=== PATIENT | male | born 1950 | race African-American/Black ===

== ENCOUNTER → 2017-09-03 | Outpatient (CLI) | payer MEDICARE ==
[2017-09-03 09:01] LABS: ALT 49 U/L (21-72); AST 57 U/L (17-59); Albumin 4.2 g/dL (3.5-5.0); Alkaline Phosphatase 54 U/L (38-126); Anion Gap 9 mmol/L; Blood Urea Nitrogen 19 mg/dL (9-20); Calcium 9.2 mg/dL (8.4-10.2); Carbon Dioxide 26 mmol/L (22-30); Chloride 104 mmol/L (98-107); Cholesterol 148 mg/dL (<200); Glucose 100 mg/dL (74-99); HDL Cholesterol 37 mg/dL (40-60); LDL Cholesterol,Calculated 93 mg/dL (0-99); Potassium 4.3 mmol/L (3.5-5.1); Sodium 139 mmol/L (137-145); Total Bilirubin 0.6 mg/dL (0.2-1.3); Total Protein 6.8 g/dL (6.3-8.2); Triglycerides 89 mg/dL (<150)
[2017-09-03 09:11] LABS: Basophils % (A) 1 %; Eosinophils # (A) 0.2 k/uL (0-0.7); Eosinophils % (A) 6 %; HCT 45.3 % (39.0-53.0); HGB 15.2 gm/dL (13.0-17.5); Lymphocytes % (A) 33 %; MCH 31.8 pg (25.0-35.0); MCHC 33.5 g/dL (31.0-37.0); MCV 95.1 fL (80.0-100.0); Mean Platelet Volume 7.4; Monocytes # (A) 0.3 k/uL (0-1.0); Monocytes % (A) 8 %; Neutrophils # (A) 1.5 k/uL (1.3-7.7); Neutrophils % (A) 48 %; Platelet Count 178 k/uL (150-450); RBC 4.76 m/uL (4.30-5.90); RDW 13.2 % (11.5-15.5); WBC 3.2 k/uL (3.8-10.6)
[2017-09-03 09:36] LABS: Prostate Specific Antigen <0.10 ng/mL (0.00-4.00)
== END | disposition home or self-care (01) ==
LOC: LABWHC1 08:00
PROVIDERS: ATTEND Family Medicine
DX: E78.5 Hyperlipidemia, unspecified (principal); Z12.5 Encounter for screening for malignant neoplasm of prostate
CPT/HCPCS: 36415; 80053; 80061; 82306; 84153; 85025

== ENCOUNTER → 2017-10-01 | Outpatient (CLI) | payer MEDICARE ==
[2017-10-01 14:26] LABS: Basophils % (A) 1 %; Eosinophils # (A) 0.1 k/uL (0-0.7); Eosinophils % (A) 3 %; HCT 47.8 % (39.0-53.0); HGB 15.8 gm/dL (13.0-17.5); Lymphocytes % (A) 26 %; MCH 31.5 pg (25.0-35.0); MCV 95.2 fL (80.0-100.0); Mean Platelet Volume 7.3; Monocytes # (A) 0.3 k/uL (0-1.0); Monocytes % (A) 8 %; Neutrophils # (A) 2.2 k/uL (1.3-7.7); Neutrophils % (A) 58 %; Platelet Count 181 k/uL (150-450); RBC 5.02 m/uL (4.30-5.90); RDW 13.4 % (11.5-15.5); WBC 3.8 k/uL (3.8-10.6)
[2017-10-01 14:38] LABS: Albumin 4.4 g/dL (3.5-5.0); Calcium 9.6 mg/dL (8.4-10.2); Potassium 4.6 mmol/L (3.5-5.1); Total Bilirubin 0.6 mg/dL (0.2-1.3); Total Protein 7.1 g/dL (6.3-8.2)
[2017-10-01 20:45] LABS: Hemoglobin A1C 5.1 % (4.0-6.0)
== END | disposition home or self-care (01) ==
LOC: LABWHC1 13:50
PROVIDERS: ATTEND Family Medicine
DX: R73.01 Impaired fasting glucose (principal)
CPT/HCPCS: 36415; 80053; 83036; 85025

== ENCOUNTER → 2017-11-29 | Outpatient (CLI) | payer MEDICARE ==
[2017-11-29 09:02] LABS: Albumin 4.3 g/dL (3.5-5.0); Calcium 9.4 mg/dL (8.4-10.2); Potassium 4.7 mmol/L (3.5-5.1); Total Bilirubin 0.6 mg/dL (0.2-1.3); Total Protein 7.3 g/dL (6.3-8.2)
== END | disposition home or self-care (01) ==
LOC: LABWHC1 08:03
PROVIDERS: ATTEND Family Medicine
DX: R73.01 Impaired fasting glucose (principal)
CPT/HCPCS: 36415; 80053

== ENCOUNTER → 2018-07-14 | Outpatient (CLI) | payer MEDICARE ==
[2018-07-14 13:29] LABS: Prothrombin Time 90.9 sec (9.0-12.0)
[2018-07-14 13:36] LABS: INR 9.2 (<1.2)
== END | disposition home or self-care (01) ==
LOC: LABWHC1 11:23
PROVIDERS: ATTEND Nurse Practitioner Adult Health
DX: I26.99 Other pulmonary embolism without acute cor pulmonale (principal)
CPT/HCPCS: 36415; 85610

== ENCOUNTER → 2019-06-05 | Outpatient (CLI) | payer MEDICARE ==
[2019-06-05 09:25] LABS: Basophils % (A) 1 %; Eosinophils # (A) 0.2 k/uL (0-0.7); Eosinophils % (A) 6 %; HCT 51.9 % (39.0-53.0); HGB 17.1 gm/dL (13.0-17.5); Lymphocytes # (A) 0.9 k/uL (1.0-4.8); Lymphocytes % (A) 30 %; MCH 31.3 pg (25.0-35.0); MCHC 32.9 g/dL (31.0-37.0); MCV 95.1 fL (80.0-100.0); Mean Platelet Volume 8.1; Monocytes # (A) 0.2 k/uL (0-1.0); Monocytes % (A) 8 %; Neutrophils # (A) 1.5 k/uL (1.3-7.7); Neutrophils % (A) 52 %; Platelet Count 169 k/uL (150-450); RBC 5.46 m/uL (4.30-5.90); RDW 12.9 % (11.5-15.5); WBC 2.9 k/uL (3.8-10.6)
[2019-06-05 15:38] LABS: African American GFR (CKD) 65.4 (60.0-200.0); Albumin 4.5 g/dL (3.80-4.90); Albumin/Globulin Ratio 1.96 (1.60-3.17); BUN/Creat Ratio 11.54 Ratio (12.00-20.00); Calcium 9.2 mg/dL (8.7-10.3); Globulin 2.3 g/dL (1.6-3.3); Non-African American GFR(CKD) 56.5 (60.0-200.0); Potassium 4.5 mmol/L (3.5-5.5); Total Bilirubin 0.5 mg/dL (0.2-1.2); Total Protein 6.8 g/dL (6.2-8.2)
== END | disposition home or self-care (01) ==
LOC: LABWHC1 08:39
PROVIDERS: ATTEND Family Medicine
DX: I10 Essential (primary) hypertension (principal); Z85.46 Personal history of malignant neoplasm of prostate; E55.9 Vitamin D deficiency, unspecified
CPT/HCPCS: 36415; 80053; 82306; 84153; 85025

== ENCOUNTER → 2019-06-23 | Outpatient (CLI) | payer MEDICARE ==
[2019-06-23 11:27] LABS: Basophils # (A) 0.1 k/uL (0-0.2); Basophils % (A) 2 %; Eosinophils # (A) 0.2 k/uL (0-0.7); Eosinophils % (A) 6 %; HCT 54.3 % (39.0-53.0); Lymphocytes # (A) 1.2 k/uL (1.0-4.8); Lymphocytes % (A) 34 %; MCHC 33.1 g/dL (31.0-37.0); MCV 96.7 fL (80.0-100.0); Mean Platelet Volume 7.6; Monocytes # (A) 0.3 k/uL (0-1.0); Monocytes % (A) 8 %; Neutrophils # (A) 1.7 k/uL (1.3-7.7); Neutrophils % (A) 47 %; Platelet Count 182 k/uL (150-450); RBC 5.62 m/uL (4.30-5.90); RDW 12.8 % (11.5-15.5); WBC 3.6 k/uL (3.8-10.6)
[2019-06-23 15:34] LABS: African American GFR (CKD) 50.9 (60.0-200.0); Albumin 4.6 g/dL (3.80-4.90); Albumin/Globulin Ratio 1.84 (1.60-3.17); Anion Gap 5.1 mmol/L (4.00-12.00); BUN/Creat Ratio 11.88 Ratio (12.00-20.00); Calcium 9.6 mg/dL (8.7-10.3); Carbon Dioxide 26.9 mmol/L (21.6-31.8); Globulin 2.5 g/dL (1.6-3.3); Non-African American GFR(CKD) 43.9 (60.0-200.0); Potassium 4.4 mmol/L (3.5-5.5); Total Bilirubin 0.5 mg/dL (0.3-1.2); Total Protein 7.1 g/dL (6.2-8.2)
== END | disposition home or self-care (01) ==
LOC: LABWHC1 11:01
PROVIDERS: ATTEND Family Medicine
DX: I10 Essential (primary) hypertension (principal)
CPT/HCPCS: 36415; 80053; 85025

== ENCOUNTER → 2019-07-31 | Outpatient (CLI) | payer MEDICARE ==
[2019-07-31 13:19] LABS: Basophils # (A) 0.1 k/uL (0-0.2); Basophils % (A) 2 %; Eosinophils # (A) 0.2 k/uL (0-0.7); Eosinophils % (A) 4 %; HCT 51.2 % (39.0-53.0); HGB 17.1 gm/dL (13.0-17.5); Lymphocytes # (A) 1.1 k/uL (1.0-4.8); Lymphocytes % (A) 29 %; MCH 32.5 pg (25.0-35.0); MCHC 33.4 g/dL (31.0-37.0); MCV 97.4 fL (80.0-100.0); Mean Platelet Volume 8.3; Monocytes # (A) 0.4 k/uL (0-1.0); Monocytes % (A) 10 %; Neutrophils % (A) 52 %; Platelet Count 187 k/uL (150-450); RBC 5.26 m/uL (4.30-5.90); RDW 13.2 % (11.5-15.5); WBC 3.8 k/uL (3.8-10.6)
[2019-07-31 18:33] LABS: Urine Creatinine 184.8 mg/dL
[2019-07-31 20:34] LABS: Albumin 4.4 g/dL (3.80-4.90); Anion Gap 9.8 mmol/L (4.00-12.00); Calcium 9.3 mg/dL (8.7-10.3); Carbon Dioxide 23.2 mmol/L (21.6-31.8); Globulin 2.2 g/dL (1.6-3.3); Non-African American GFR(CKD) 47.5 (60.0-200.0); Potassium 4.5 mmol/L (3.5-5.5); Total Bilirubin 0.5 mg/dL (0.2-1.2); Total Protein 6.6 g/dL (6.2-8.2)
== END | disposition home or self-care (01) ==
LOC: LABWHC1 10:56
PROVIDERS: ATTEND Family Medicine
DX: I10 Essential (primary) hypertension (principal)
CPT/HCPCS: 36415; 80053; 82043; 82570; 85025

== ENCOUNTER → 2021-02-15 | Outpatient (CLI) | payer MEDICARE ==
[2021-02-15 17:54] LABS: Basophils # (A) 0.07 X 10*3/uL (0.00-0.10); Basophils % (A) 2.1 %; Eosinophils # (A) 0.16 X 10*3/uL (0.04-0.35); Eosinophils % (A) 4.7 %; HCT 48.8 % (39.6-50.0); HGB 16.2 g/dL (13.0-17.0); Lymphocytes # (A) 1.05 X 10*3/uL (0.90-5.00); Lymphocytes % (A) 31.2 %; MCHC 33.2 g/dL (32.0-37.0); MCV 93.5 fL (80.0-97.0); Mean Platelet Volume 10.7 fL (9.5-12.2); Monocytes # (A) 0.41 X 10*3/uL (0.20-1.00); Monocytes % (A) 12.2 %; Neutrophils # (A) 1.67 X 10*3/uL (1.80-7.70); Neutrophils % (A) 49.5 %; Platelet Count 177 X 10*3/uL (140-440); RBC 5.22 X 10*6/uL (4.40-5.60); RDW 12.3 % (11.5-14.5); WBC 3.37 X 10*3/uL (4.50-10.00)
[2021-02-15 18:34] LABS: ALT 24 U/L (10-49); AST 24 U/L (14-35); African American GFR (CKD) 72.3 (60.0-200.0); Albumin 4.4 g/dL (3.8-4.9); Albumin/Globulin Ratio 1.91 (1.60-3.17); Alkaline Phosphatase 75 U/L (41-126); BUN/Creat Ratio 12.18 Ratio (12.00-20.00); Blood Urea Nitrogen 14.5 mg/dL (9.0-27.0); Calcium 9.3 mg/dL (8.7-10.3); Carbon Dioxide 20.7 mmol/L (20.0-27.5); Chloride 100 mmol/L (96-109); Chol/HDL Ratio 4.95 Ratio; Globulin 2.3 g/dL (1.6-3.3); Glucose 268 mg/dL (70-110); LDL Cholesterol,Calculated 91.3 mg/dL (0.0-131.0); Non-African American GFR(CKD) 62.4 (60.0-200.0); Potassium 4.4 mmol/L (3.5-5.5); Sodium 134 mmol/L (135-145); Total Protein 6.7 g/dL (6.2-8.2)
[2021-02-15 22:44] LABS: PSA Annual Screen <0.014 ng/mL (0.000-4.000)
== END | disposition home or self-care (01) ==
LOC: LABWHC1 10:15
PROVIDERS: ATTEND Family Medicine
DX: Z12.5 Encounter for screening for malignant neoplasm of prostate (principal); E78.5 Hyperlipidemia, unspecified; I10 Essential (primary) hypertension; E55.9 Vitamin D deficiency, unspecified
CPT/HCPCS: 80061; 80053; 85025; 82306; 36415; G0103

== ENCOUNTER → 2022-05-26 | Outpatient (CLI) | payer MEDICARE ==
[2022-05-26 18:13] LABS: Basophils # (A) 0.07 X 10*3/uL (0.00-0.10); Basophils % (A) 0.9 %; Eosinophils # (A) 0.11 X 10*3/uL (0.04-0.35); Eosinophils % (A) 1.4 %; HCT 38.5 % (39.6-50.0); HGB 11.5 g/dL (13.0-17.0); Immature Grans, Automated 0.1 %; Lymphocytes # (A) 0.88 X 10*3/uL (0.90-5.00); Lymphocytes % (A) 10.8 %; MCH 28.2 pg (27.0-32.0); MCHC 29.9 g/dL (32.0-37.0); MCV 94.4 fL (80.0-97.0); Mean Platelet Volume 9.4 fL (9.5-12.2); Monocytes # (A) 0.79 X 10*3/uL (0.20-1.00); Monocytes % (A) 9.7 %; NRBC Per 100 WBC 0 /100 WBCS (0.0-0.0); Neutrophils # (A) 6.28 X 10*3/uL (1.80-7.70); Neutrophils % (A) 77.1 %; Platelet Count 297 X 10*3/uL (140-440); RBC 4.08 X 10*6/uL (4.40-5.60); RDW 13.6 % (11.5-14.5); WBC 8.14 X 10*3/uL (4.50-10.00)
[2022-05-26 18:29] LABS: African American GFR (CKD) 78.4 (60.0-200.0); Albumin 3.6 g/dL (3.8-4.9); Albumin/Globulin Ratio 0.82 (1.60-3.17); Anion Gap 10.2 mmol/L (10.00-18.00); BUN/Creat Ratio 15.73 Ratio (12.00-20.00); Blood Urea Nitrogen 17.3 mg/dL (9.0-27.0); Calcium 9.2 mg/dL (8.7-10.3); Carbon Dioxide 24.8 mmol/L (20.0-27.5); Globulin 4.4 g/dL (1.6-3.3); Non-African American GFR(CKD) 67.7 (60.0-200.0); Potassium 4.3 mmol/L (3.5-5.5); Total Bilirubin 0.5 mg/dL (0.30-1.20)
== END | disposition home or self-care (01) ==
LOC: LABWHC1 10:44
PROVIDERS: ATTEND Family Medicine
DX: I10 Essential (primary) hypertension (principal)
CPT/HCPCS: 36415; 80053; 85025

== ENCOUNTER 2022-06-10 11:04 | Emergency (ER) | payer MEDICARE ==
[2022-06-10 11:56] VITALS: TEMP 98
[2022-06-10 12:24] LABS: Basophils % (A) 0 %; Eosinophils # (A) 0.1 k/uL (0-0.7); Eosinophils % (A) 2 %; HCT 37.8 % (39.0-53.0); HGB 11.6 gm/dL (13.0-17.5); Hypochromasia Slight; Lymphocytes # (A) 0.6 k/uL (1.0-4.8); Lymphocytes % (A) 9 %; MCH 28.5 pg (25.0-35.0); MCHC 30.7 g/dL (31.0-37.0); MCV 93.1 fL (80.0-100.0); Monocytes # (A) 0.2 k/uL (0-1.0); Monocytes % (A) 3 %; Neutrophils # (A) 5.8 k/uL (1.3-7.7); Neutrophils % (A) 84 %; Platelet Count 320 k/uL (150-450); RBC 4.06 m/uL (4.30-5.90); RDW 14.8 % (11.5-15.5); WBC 6.9 k/uL (3.8-10.6)
[2022-06-10 12:37] LABS: INR 3.3 (<1.2); Partial Thromboplastin Time 40.4 sec (22.0-30.0)
[2022-06-10 12:42] LABS: Calcium 8.6 mg/dL (8.4-10.2); Magnesium 2.3 mg/dL (1.6-2.3); Potassium 4.8 mmol/L (3.5-5.1); Total Bilirubin 0.6 mg/dL (0.2-1.3); Total Protein 7.5 g/dL (6.3-8.2)
--- NOTE | 2022-06-10 13:00 | ED ---
General Adult HPI - General Chief complaint: Shortness of Breath Stated complaint: abd pain Time Seen by Provider: 06/10/22 12:05 Source: patient, RN notes reviewed, old records reviewed Mode of arrival: ambulatory Limitations: no limitations - History of Present Illness Initial comments: This is a 72-year-old male who presents emergency Department complaining of nausea. Patient states she gets about once every 2 weeks. Patient states when he is nauseous she is not eating and he believes he is losing a little weight because of that. Patient states he has no nausea currently but his primary medical care doctor told him to come in and be evaluated. Patient states he also is noted when he is nauseated he also is somewhat short of breath but he does continue to smoke. Patient states currently he feels a little short of breath right now per patient denies any chest pain or palpitations. Patient denies any abdominal pain patient states when he is nauseated he gets a little cramping he has had dry heaves but he never vomited. Patient denies any diarrhea. Patient states his bowel movements are normal. Patient denies any fever chills or cough. - Related Data Home Medications Medication Instructions Recorded Confirmed Ascorbic Acid [Vitamin C] 1,000 mg PO DAILY 06/10/22 06/10/22 Garlic 1,000 mg PO DAILY 06/10/22 06/10/22 Green Tea [place] Extract [Green Tea 150 mg PO DAILY 06/10/22 06/10/22 Extract] Vitamin E (Dl,Tocopheryl Acet) 450 mg PO DAILY 06/10/22 06/10/22 [Vitamin E (1000 Iu = 450 MG)] Warfarin Sodium 10 mg PO DAILY 06/10/22 06/10/22 amLODIPine [Norvasc] 10 mg PO DAILY 06/10/22 06/10/22 lisinopriL [Zestril] 2.5 mg PO DAILY 06/10/22 06/10/22 metFORMIN HCL [Glucophage] 500 mg PO BID 06/10/22 06/10/22 Allergies Allergy/AdvReac Type Severity Reaction Status Date / Time Penicillins Allergy Unknown Verified 06/10/22 14:52 Childhood Review of Systems ROS Statement: Those systems with pertinent positive or pertinent negative responses have been documented in the HPI. ROS Other: All systems not noted in ROS Statement are negative. Past Medical History Past Medical History: Deep Vein Thrombosis (DVT), Prostate Disorder History of Any Multi-Drug Resistant Organisms: None Reported Past Surgical History: Prostate Surgery Past Psychological History: No Psychological Hx Reported Smoking Status: Current every day smoker Past Alcohol Use History: Occasional Past Drug Use History: None Reported General Exam - General Exam Comments Initial Comments: GENERAL: Patient is well-developed and well-nourished. Patient is nontoxic and well- hydrated and is in no acute distress. ENT: Neck is soft and supple. No significant lymphadenopathy is noted. Oropharynx is clear. Moist mucous membranes. Neck has full range of motion without eliciting any pain. EYES: The sclera were anicteric and conjunctiva were pink and moist. Extraocular movements were intact and pupils were equal round and reactive to light. Eyelids were unremarkable. PULMONARY: Unlabored respirations. Good breath sounds bilaterally. No audible rales rhonchi or wheezing was noted. CARDIOVASCULAR: There is a regular rate and rhythm without any murmurs gallops or rubs. ABDOMEN: Soft and nontender with normal bowel sounds. SKIN: Skin is clear with no lesions or rashes and otherwise unremarkable. NEUROLOGIC: Patient is alert and oriented x3. Cranial nerves II through XII are grossly intact. Motor and sensory are also intact. Normal speech, volume and content. Symmetrical smile. MUSCULOSKELETAL: Normal extremities with adequate strength and full range of motion. No lower extremity swelling or edema. No calf tenderness. LYMPHATICS: No significant lymphadenopathy is noted PSYCHIATRIC: Normal psychiatric evaluation. 68 Limitations: no limitations Course Vital Signs 06/10/22 06/10/22 11:51 15:00 Temperature 98.0 F Pulse Rate 100 78 Respiratory 20 18 Rate Blood Pressure 101/68 100/68 O2 Sat by Pulse 98 98 Oximetry Medical Decision Making - Medical Decision Making EKG as interpreted by myself. EKG shows a sinus rhythm at 95 bpm TN interval 129 QRSs 102 QT interval 350 QTC is 411. Patient's EKG has some inverted T waves in the inferior leads. I have no old EKG to compare to Was pt. sent in by a medical professional or institution (, SAMY, HAIR BOILER OPERATOR, urgent care, hospital, or long-term...) When possible be specific @ -Dr. Pike the sent the patient in to be evaluated Did you speak to anyone other than the patient for history (EMS, parent, family, police, friend...)? What history was obtained from this source @ -No Did you review nursing and triage notes (agree or disagree)? Why? @ -I reviewed and agree with nursing and triage notes Were old charts reviewed (outside hosp., previous admission, EMS record, old EKG, old radiological studies, urgent care reports/EKG's, long-term records)? Report findings @ -I reviewed prior lab work on this patient Differential Diagnosis (chest pain, altered mental status, abdominal pain women, abdominal pain men, vaginal bleeding, weakness, fever, dyspnea, syncope, headache, dizziness, GI bleed, back pain, seizure, CVA, palpatations, mental health, musculoskeletal)? @ -Differential Abdominal Pain Men: Appendicitis, cholecystitis, diverticulosis, ischemic bowel, pancreatitis, hepatitis, UTI, gastroenteritis, AAA, incarcerated hernia, bowel obstruction, constipation, inflammatory bowel, hepatitis, peptic ulcer disease, splenic infarction, perforated viscus, testicular torsion, this is not meant to be an all-inclusive list EKG interpreted by me (3pts min.). @ -As above X-rays interpreted by me (1pt min.). @ -Chest x-ray was interpreted by myself I no acute abnormality. CT interpreted by me (1pt min.). @ -None done U/S interpreted by me (1pt. min.). @ -None done What testing was considered but not performed or refused? (CT, X-rays, U/S, labs)? Why? @ -None What meds were considered but not given or refused? Why? @ -None Did you discuss the management of the patient with other professionals (professionals i.e. , PA, HAIR BOILER OPERATOR, lab, RT, psych nurse, social worker clinical, substitute school nurse, teacher, child support officer, manager case)? Give summary @ -No Was smoking cessation discussed for >3mins.? @ -No Was critical care preformed (if so, how long)? @ -No Were there social determinants of health that impacted care today? How? (Homelessness, low income, unemployed, alcoholism, drug addiction, transportation, low edu. Level, literacy, decrease access to med. care, nursing home, rehab)? @ -No Was there de-escalation of care discussed even if they declined (Discuss DNR or withdrawal of care, Hospice)? DNR status @ -No What co-morbidities impacted this encounter? (DM, HTN, Smoking, COPD, CAD, Cancer, CVA, ARF, Chemo, Hep., AIDS, mental health diagnosis, sleep apnea, morbid obesity)? @ -None Was patient admitted / discharged? Hospital course, mention meds given and route, prescriptions, significant lab abnormalities, going to OR and other p ertinent info. @ -When I initially saw the patient patient denied any nausea he just states that it was an intermittent episodes that occurs about once every 2 weeks. Patient said he did have some shortness of breath occasionally but he thinks it's associated with nausea and I went back in and gave him all of blood work results and he stated that he is not short of breath and is not having any nausea at this time patient is willing to follow up with his primary medical care doctor Undiagnosed new problem with uncertain prognosis? @ -No Drug Therapy requiring intensive monitoring for toxicity (Heparin, Nitro, Insulin, Cardizem)? @ -No Were any procedures done? @ -No Diagnosis/symptom? @ -Nausea Acute, or Chronic, or Acute on Chronic? @ -Acute on chronic Uncomplicated (without systemic symptoms) or Complicated (systemic symptoms)? @ -Uncomplicated Side effects of treatment? @ -No Exacerbation, Progression, or Severe Exacerbation? @ -No Poses a threat to life or bodily function? How? (Chest pain, [place], [place], pneumonia, PE, COPD, DKA, ARF, appy, cholecystitis, CVA, Diverticulitis, Homicidal, Suicidal, threat to staff... and all critical care pts) @ -No Diagnosis/symptom? @ -Renal insufficiency Acute, or Chronic, or Acute on Chronic? @ -Acute Uncomplicated (without systemic symptoms) or Complicated (systemic symptoms)? @ -Complicated Side effects of treatment? @ -none Exacerbation, Progression, or Severe Exacerbation] @ -no Poses a threat to life or bodily function? @ -no - Lab Data Result diagrams: 06/10/22 12:05 06/10/22 12:05 Lab Results 06/10/22 06/10/22 06/10/22 Range/Units 12:05 12:05 12:05 WBC 6.9 (3.8-10.6) k/uL RBC 4.06 L (4.30-5.90) m/uL Hgb 11.6 L (13.0-17.5) gm/dL Hct 37.8 L (39.0-53.0) % MCV 93.1 (80.0-100.0) fL MCH 28.5 (25.0-35.0) pg MCHC 30.7 L (31.0-37.0) g/dL RDW 14.8 (11.5-15.5) % Plt Count 320 (150-450) k/uL MPV 8.0 Neutrophils % 84 % Lymphocytes % 9 % Monocytes % 3 % Eosinophils % 2 % Basophils % 0 % Neutrophils # 5.8 (1.3-7.7) k/uL Lymphocytes # 0.6 L (1.0-4.8) k/uL Monocytes # 0.2 (0-1.0) k/uL Eosinophils # 0.1 (0-0.7) k/uL Basophils # 0.0 (0-0.2) k/uL Hypochromasia Slight PT 32.0 H (9.0-12.0) sec INR 3.3 H (<1.2) APTT 40.4 H (22.0-30.0) sec Sodium 138 (137-145) mmol/L Potassium 4.8 (3.5-5.1) mmol/L Chloride 107 (98-107) mmol/L Carbon Dioxide 22 (22-30) mmol/L Anion Gap 9 mmol/L BUN 30 H (9-20) mg/dL Creatinine 1.67 H (0.66-1.25) mg/dL Est GFR (CKD-EPI)AfAm 47 (>60 ml/min/1.73 sqM) Est GFR (CKD-EPI)NonAf 41 (>60 ml/min/1.73 sqM) Glucose 219 H (74-99) mg/dL Plasma Lactic Acid Jori (0.7-2.0) mmol/L Calcium 8.6 (8.4-10.2) mg/dL Magnesium 2.3 (1.6-2.3) mg/dL Total Bilirubin 0.6 (0.2-1.3) mg/dL AST 34 (17-59) U/L ALT 47 (4-49) U/L Alkaline Phosphatase 106 (38-126) U/L Troponin I (0.000-0.034) ng/mL NT-Pro-B Natriuret Pep pg/mL Total Protein 7.5 (6.3-8.2) g/dL Albumin 3.0 L (3.5-5.0) g/dL Lipase (23-300) U/L 06/10/22 06/10/22 06/10/22 Range/Units 12:05 12:05 12:05 WBC (3.8-10.6) k/uL RBC (4.30-5.90) m/uL Hgb (13.0-17.5) gm/dL Hct (39.0-53.0) % MCV (80.0-100.0) fL MCH (25.0-35.0) pg MCHC (31.0-37.0) g/dL RDW (11.5-15.5) % Plt Count (150-450) k/uL MPV Neutrophils % % Lymphocytes % % Monocytes % % Eosinophils % % Basophils % % Neutrophils # (1.3-7.7) k/uL Lymphocytes # (1.0-4.8) k/uL Monocytes # (0-1.0) k/uL Eosinophils # (0-0.7) k/uL Basophils # (0-0.2) k/uL Hypochromasia PT (9.0-12.0) sec INR (<1.2) APTT (22.0-30.0) sec Sodium (137-145) mmol/L Potassium (3.5-5.1) mmol/L Chloride (98-107) mmol/L Carbon Dioxide (22-30) mmol/L Anion Gap mmol/L BUN (9-20) mg/dL Creatinine (0.66-1.25) mg/dL Est GFR (CKD-EPI)AfAm (>60 ml/min/1.73 sqM) Est GFR (CKD-EPI)NonAf (>60 ml/min/1.73 sqM) Glucose (74-99) mg/dL Plasma Lactic Acid Jori (0.7-2.0) mmol/L Calcium (8.4-10.2) mg/dL Magnesium (1.6-2.3) mg/dL Total Bilirubin (0.2-1.3) mg/dL AST (17-59) U/L ALT (4-49) U/L Alkaline Phosphatase (38-126) U/L Troponin I <0.012 (0.000-0.034) ng/mL NT-Pro-B Natriuret Pep 471 pg/mL Total Protein (6.3-8.2) g/dL Albumin (3.5-5.0) g/dL Lipase 86 (23-300) U/L 06/10/22 Range/Units 12:44 WBC (3.8-10.6) k/uL RBC (4.30-5.90) m/uL Hgb (13.0-17.5) gm/dL Hct (39.0-53.0) % MCV (80.0-100.0) fL MCH (25.0-35.0) pg MCHC (31.0-37.0) g/dL RDW (11.5-15.5) % Plt Count (150-450) k/uL MPV Neutrophils % % Lymphocytes % % Monocytes % % Eosinophils % % Basophils % % Neutrophils # (1.3-7.7) k/uL Lymphocytes # (1.0-4.8) k/uL Monocytes # (0-1.0) k/uL Eosinophils # (0-0.7) k/uL Basophils # (0-0.2) k/uL Hypochromasia PT (9.0-12.0) sec INR (<1.2) APTT (22.0-30.0) sec Sodium (137-145) mmol/L Potassium (3.5-5.1) mmol/L Chloride (98-107) mmol/L Carbon Dioxide (22-30) mmol/L Anion Gap mmol/L BUN (9-20) mg/dL Creatinine (0.66-1.25) mg/dL Est GFR (CKD-EPI)AfAm (>60 ml/min/1.73 sqM) Est GFR (CKD-EPI)NonAf (>60 ml/min/1.73 sqM) Glucose (74-99) mg/dL Plasma Lactic Acid Jori 1.3 (0.7-2.0) mmol/L Calcium (8.4-10.2) mg/dL Magnesium (1.6-2.3) mg/dL Total Bilirubin (0.2-1.3) mg/dL AST (17-59) U/L ALT (4-49) U/L Alkaline Phosphatase (38-126) U/L Troponin I (0.000-0.034) ng/mL NT-Pro-B Natriuret Pep pg/mL Total Protein (6.3-8.2) g/dL Albumin (3.5-5.0) g/dL Lipase (23-300) U/L Disposition Clinical Impression: Renal insufficiency, Nausea Disposition: HOME SELF-CARE Instructions (If sedation given, give patient instructions): Acute Nausea and Vomiting (ED), Acute Kidney Injury (DC) Is patient prescribed a controlled substance at d/c from ED?: No Referrals: Foreign Pike MD [Primary Care Provider] - 1-2 days Time of Disposition: 15:53
--- NOTE | 2022-06-10 14:31 | XR ---
EXAMINATION TYPE: XR chest 2V DATE OF EXAM: 06/10/2022 2:22 PM COMPARISON: Chest radiographs from 07/22/2012 TECHNIQUE: XR chest 2V Frontal and lateral views of the chest. CLINICAL INDICATION:Male, 72 years old with history of Difficulty breathing ; FINDINGS: Lungs/Pleura: Bibasilar atelectasis. No evidence for pneumothorax, pleural effusion or focal consolid ation. Pulmonary vascularity: Unremarkable. Heart/mediastinum: Cardiomediastinal silhouette is unremarkable. Musculoskeletal: No acute osseous pathology. IMPRESSION: No acute cardiopulmonary disease/process.
[2022-06-10 15:12] VITALS: BP 100/68; PULSE 78; RESP 18
== END 2022-06-10 16:00 | disposition home or self-care (01) ==
LOC: EC 11:04
DX: N28.9 Disorder of kidney and ureter, unspecified (principal); R11.0 Nausea; F17.200 Nicotine dependence, unspecified, uncomplicated; Z88.0 Allergy status to penicillin
CPT/HCPCS: 36415; 71046; 80053; 83605; 83690; 83735; 83880; 84484; 85025; 85610; 85730; 93005; 99285

== ENCOUNTER 2023-02-14 19:43 | Emergency (ER) | payer MEDICARE, OTHER ==
[2023-02-14 19:50] VITALS: BP 102/68; PULSE 86; RESP 18; TEMP 97.6
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
[2023-02-14 20:03] LABS: Glucose,Whole Blood 133 mg/dL (70-110)
[2023-02-14 20:04] LABS: Basophils # (A) 0.1 k/uL (0-0.2); Basophils % (A) 1 %; Eosinophils # (A) 0.2 k/uL (0-0.7); Eosinophils % (A) 3 %; HCT 43.3 % (39.0-53.0); HGB 14.3 gm/dL (13.0-17.5); Lymphocytes # (A) 2.4 k/uL (1.0-4.8); Lymphocytes % (A) 35 %; Monocytes # (A) 0.3 k/uL (0-1.0); Monocytes % (A) 5 %; Neutrophils # (A) 3.7 k/uL (1.3-7.7); Neutrophils % (A) 54 %; Platelet Count 204 k/uL (150-450); RBC 4.47 m/uL (4.30-5.90); RDW 12.9 % (11.5-15.5); WBC 6.9 k/uL (3.8-10.6)
[2023-02-14 20:15] LABS: INR 1.9 (<1.2); Partial Thromboplastin Time 26.4 sec (22.0-30.0); Prothrombin Time 19.1 sec (10.0-12.5)
[2023-02-14 20:30] LABS: ALT 88 U/L (4-49); AST 103 U/L (17-59); African American GFR (CKD) 55 (>60 ml/min/1.73 sqM); Albumin 3.8 g/dL (3.5-5.0); Alcohol <10 mg/dL; Alkaline Phosphatase 70 U/L (38-126); Anion Gap 8 mmol/L; Blood Urea Nitrogen 30 mg/dL (9-20); Calcium 8.7 mg/dL (8.4-10.2); Carbon Dioxide 23 mmol/L (22-30); Chloride 106 mmol/L (98-107); Glucose 151 mg/dL (74-99); Non-African American GFR(CKD) 47 (>60 ml/min/1.73 sqM); Potassium 4.1 mmol/L (3.5-5.1); Sodium 137 mmol/L (137-145); Total Bilirubin 0.5 mg/dL (0.2-1.3); Total Protein 6.8 g/dL (6.3-8.2)
[2023-02-14] MEDS ORDERED: HYDROmorphone 0.5 MG/0.5 ML SYRINGE IVP STA (20:37)
[2023-02-14] MEDS ORDERED: DIPH,PERTUS(ACELL)TETVAC-LF 0.5 ML VIAL IM ONE (20:45)
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
== END 2023-02-14 21:58 | disposition other institution (70) ==
LOC: EC 19:43
DX: S82.141A Displaced bicondylar fracture of right tibia, initial encounter for closed fracture (principal); S22.31XA Fracture of one rib, right side, initial encounter for closed fracture; F17.200 Nicotine dependence, unspecified, uncomplicated; Z79.01 Long term (current) use of anticoagulants; Z86.718 Personal history of other venous thrombosis and embolism; Z88.0 Allergy status to penicillin; Z23 Encounter for immunization; V03.90XA Pedestrian on foot injured in collision with car, pick-up truck or van, unspecified whether traffic or nontraffic accident, initial encounter; Y92.410 Unspecified street and highway as the place of occurrence of the external cause
CPT/HCPCS: 99291; 96374; 90471; 36415; 93005; 86900; 86901; 80053; 84484; 85025; 85610; 85730; 86850; 72170; 73590; 73562; 73610 ×2; 71045; 72125; 70450; 71260; 74177; 90715; L1830; G0390; G0480; J1170; Q9967; 80320; 99285

== ENCOUNTER → 2023-09-01 | Outpatient (CLI) | payer MEDICARE ==
[2023-09-01 09:21] LABS: Basophils # (A) 0.1 k/uL (0-0.2); Basophils % (A) 1 %; Eosinophils # (A) 0.2 k/uL (0-0.7); Eosinophils % (A) 5 %; HCT 51.1 % (39.0-53.0); Lymphocytes # (A) 1.1 k/uL (1.0-4.8); Lymphocytes % (A) 34 %; MCH 31.3 pg (25.0-35.0); MCHC 31.3 g/dL (31.0-37.0); MCV 99.9 fL (80.0-100.0); Mean Platelet Volume 8.3; Monocytes # (A) 0.3 k/uL (0-1.0); Monocytes % (A) 9 %; Neutrophils # (A) 1.6 k/uL (1.3-7.7); Neutrophils % (A) 47 %; Platelet Count 170 k/uL (150-450); RBC 5.12 m/uL (4.30-5.90); RDW 12.7 % (11.5-15.5); WBC 3.4 k/uL (3.8-10.6)
[2023-09-01 16:02] LABS: ALT 31 U/L (10-49); AST 28 U/L (14-35); Albumin 4.6 g/dL (3.8-4.9); Alkaline Phosphatase 69 U/L (41-126); BUN/Creat Ratio 14.07 Ratio (12.00-20.00); Blood Urea Nitrogen 21.1 mg/dL (9.0-27.0); Calcium 9.6 mg/dL (8.7-10.3); Carbon Dioxide 21.6 mmol/L (21.6-31.8); Chloride 101 mmol/L (96-109); Chol/HDL Ratio 5.74 Ratio; Globulin 2.7 g/dL (1.6-3.3); Glucose 203 mg/dL (70-110); LDL Cholesterol,Calculated 127.1 mg/dL (0.0-131.0); Potassium 4.8 mmol/L (3.5-5.5); Sodium 137 mmol/L (135-145); Total Bilirubin 0.5 mg/dL (0.3-1.2); Total Protein 7.3 g/dL (6.2-8.2)
[2023-09-01 16:20] LABS: Prostate Specific Antigen <0.01 ng/mL (0.000-6.500)
== END | disposition home or self-care (01) ==
LOC: LABWHC1 08:21
PROVIDERS: ATTEND Family Medicine
DX: Z00.01 Encounter for general adult medical examination with abnormal findings (principal); E11.9 Type 2 diabetes mellitus without complications; E55.9 Vitamin D deficiency, unspecified; Z85.46 Personal history of malignant neoplasm of prostate
CPT/HCPCS: 36415; 80053; 80061; 82306; 83036; 84153; 85025

== ENCOUNTER 2024-03-29 00:58 | Inpatient (IN) | payer MEDICARE ==
--- NOTE | 2024-03-29 01:48 | ED ---
SOB HPI - General Chief Complaint: Shortness of Breath Stated Complaint: SOB Time Seen by Provider: 03/29/24 01:13 Source: patient, RN notes reviewed Mode of arrival: ambulatory Limitations: no limitations - History of Present Illness Initial Comments: This is a 73-year-old male with history of DVT, hypertension and hyperlipidemia presenting with shortness of breath x 2 months. Patient endorses recent visit to urgent care where he was informed of possible CHF. Patient also endorses mid chest pressure and BLE edema x 7 days. States breathing worsens when lying supine and would prefer to be upright. Endorses smoking history but denies personal or family cardiac/pulmonary history. Denies dizziness, radiating pain, pallor, diaphoresis fever, chills. MD Complaint: shortness of breath, chest pain Onset/Timin -: month(s) Severity: moderate Quality: crushing Consistency: constant Improves With: upright position Worsens With: lying flat, exertion Known History Of: DVT Associated Symptoms: chest pain, orthopnea - Related Data Home Medications Medication Instructions Recorded Confirmed Ascorbic Acid [Vitamin C] 1,000 mg PO DAILY 06/10/22 06/10/22 Garlic 1,000 mg PO DAILY 06/10/22 06/10/22 Green Tea Massanutten Extract [Green Tea 150 mg PO DAILY 06/10/22 06/10/22 Extract] Vitamin E (Dl,Tocopheryl Acet) 450 mg PO DAILY 06/10/22 06/10/22 [Vitamin E (1000 Iu = 450 MG)] Warfarin Sodium 10 mg PO DAILY 06/10/22 06/10/22 amLODIPine [Norvasc] 10 mg PO DAILY 06/10/22 06/10/22 lisinopriL [Zestril] 2.5 mg PO DAILY 06/10/22 06/10/22 metFORMIN HCL [Glucophage] 500 mg PO BID 06/10/22 06/10/22 Allergies Allergy/AdvReac Type Severity Reaction Status Date / Time Penicillins Allergy Unknown Verified 03/29/24 01:08 Childhood Review of Systems ROS Statement: Those systems with pertinent positive or pertinent negative responses have been documented in the HPI. ROS Other: All systems not noted in ROS Statement are negative. Past Medical History Past Medical History: Deep Vein Thrombosis (DVT), Prostate Disorder History of Any Multi-Drug Resistant Organisms: None Reported Past Surgical History: Bowel Resection, Prostate Surgery Past Psychological History: No Psychological Hx Reported Smoking Status: Current every day smoker Past Alcohol Use History: Rare Past Drug Use History: None Reported General Exam Limitations: no limitations General appearance: alert, in distress (Patient seated upright showing some accessory muscle use) Head exam: Present: atraumatic, normocephalic, normal inspection Eye exam: Present: normal appearance, PERRL, EOMI. Absent: scleral icterus, conjunctival injection, periorbital swelling ENT exam: Present: normal exam, mucous membranes moist Neck exam: Present: normal inspection. Absent: tenderness, meningismus, lymphadenopathy Respiratory exam: Present: respiratory distress, rales (Base of left lower lobe). Absent: wheezes, rhonchi, stridor Cardiovascular Exam: Present: regular rate, normal rhythm, normal heart sounds. Absent: systolic murmur, diastolic murmur, rubs, gallop, clicks GI/Abdominal exam: Present: soft, normal bowel sounds. Absent: distended, tenderness, guarding, rebound, rigid Extremities exam: Present: normal inspection, full ROM, normal capillary refill, pedal edema (BLE pitting edema extending to knees), other (Bilateral neurovascular motor function intact, bilateral dorsalis pedis pulse +2). Absent: tenderness, joint swelling, calf tenderness Back exam: Present: normal inspection Neurological exam: Present: alert, oriented X3, CN II-XII intact Psychiatric exam: Present: normal affect, normal mood Skin exam: Present: warm, dry, intact, normal color. Absent: rash Course Vital Signs 03/29/24 03/29/24 03/29/24 01:08 01:28 01:32 Temperature 98.2 F Pulse Rate 123 H 116 H Respiratory 26 H 30 H 30 H Rate Blood Pressure 173/109 160/104 O2 Sat by Pulse 91 L 91 L Oximetry 03/29/24 02:56 Temperature Pulse Rate 113 H Respiratory 35 H Rate Blood Pressure 159/105 O2 Sat by Pulse 93 L Oximetry Medical Decision Making - Medical Decision Making Was pt. sent in by a medical professional or institution (, PA, INBOUND TELEMARKETER, urgent care, hospital, or penitentiary...) When possible be specific @ -No Did you speak to anyone other than the patient for history (EMS, parent, family, police, friend...)? What history was obtained from this source @ -No Did you review nursing and triage notes (agree or disagree)? Why? @ -I reviewed and agree with nursing and triage notes Were old charts reviewed (outside hosp., previous admission, EMS record, old EKG, old radiological studies, urgent care reports/EKG's, penitentiary records)? Report findings @ -No old charts were reviewed Differential Diagnosis (chest pain, altered mental status, abdominal pain women, abdominal pain men, vaginal bleeding, weakness, fever, dyspnea, syncope, headache, dizziness, GI bleed, back pain, seizure, CVA, palpatations, mental health, musculoskeletal)? @ -Differential Dyspnea: Coronary syndrome, arrhythmia, tamponade, asthma, COPD, pulmonary embolism, pneumonia, pneumothorax, pulmonary effusion, anaphylaxis, diabetic ketoacidosis, flailed chest, pulmonary contusion, diaphragmatic rupture, anemia, neuromuscular, this is not meant to be an all-inclusive list. EKG interpreted by me (3pts min.). @ -Sinus tachycardia without ST deviation or T wave inversion. Ventricular rate 119 bpm, WILLIAM 124 ms, QRS duration 96 ms, QTc 489 ms. X-rays interpreted by me (1pt min.). @ - CXR shows small bilateral pleural effusions and pulmonary vascular congestion/edema. CT interpreted by me (1pt min.). @ -None done U/S interpreted by me (1pt. min.). @ -None done What testing was considered but not performed or refused? (CT, X-rays, U/S, labs)? Why? @ -None What meds were considered but not given or refused? Why? @ -None Did you discuss the management of the patient with other professionals (professionals i.e. , PA, INBOUND TELEMARKETER, lab, RT, psych nurse, social media designer, machine boss, teacher, quality officer, supervisor case loading)? Give summary @ -No Was smoking cessation discussed for >3mins.? @ -No Was critical care preformed (if so, how long)? @ -No Were there social determinants of health that impacted care today? How? (Homelessness, low income, unemployed, alcoholism, drug addiction, transportation, low edu. Level, literacy, decrease access to med. care, long term, rehab)? @ -No Was there de-escalation of care discussed even if they declined (Discuss DNR or withdrawal of care, Hospice)? DNR status @ -No What co-morbidities impacted this encounter? (DM, HTN, Smoking, COPD, CAD, Cancer, CVA, ARF, Chemo, Hep., AIDS, mental health diagnosis, sleep apnea, morbid obesity)? @ -Hypertension, hypercholesterolemia Was patient admitted / discharged? Hospital course, mention meds given and route, prescriptions, significant lab abnormalities, going to OR and other pertinent info. @ -Lab work significant for thrombocytopenia (108), abnormal VBG, anion gap 13, stable CKD, troponin 0.026 and BNP 6660. CXR shows small bilateral pleural effusions and pulmonary vascular congestion/edema. Patient initially given IV Lasix and Vasotec. Also given p.o. aspirin, SL nitroglycerin and Nitropaste. Patient placed on BiPAP due to ongoing respiratory distress and hypoxia. Heart score 7. [facility] to be notified in the morning for patient admission. Discussed patient with Dr. High. Undiagnosed new problem with uncertain prognosis? @ -CHF Drug Therapy requiring intensive monitoring for toxicity (Heparin, Nitro, Insulin, Cardizem)? @ -No Were any procedures done? @ -No Diagnosis/symptom? @ -CHF with pulmonary edema Acute, or Chronic, or Acute on Chronic? @ -Acute Uncomplicated (without systemic symptoms) or Complicated (systemic symptoms)? @ -Complicated Side effects of treatment? @ -No Exacerbation, Progression, or Severe Exacerbation? @ -No Poses a threat to life or bodily function? How? (Chest pain, [place], [place], pneumonia, PE, COPD, DKA, ARF, appy, cholecystitis, CVA, Diverticulitis, Homicidal, Suicidal, threat to staff... and all critical care pts) @ -CHF, respiratory failure - Lab Data Result diagrams: 03/29/24 01:48 03/29/24 01:48 Lab Results 03/29/24 03/29/24 03/29/24 Range/Units 01:48 01:48 01:48 WBC 6.5 (3.8-10.6) k/uL RBC 4.72 (4.30-5.90) m/uL Hgb 15.1 (13.0-17.5) gm/dL Hct 46.8 (39.0-53.0) % MCV 99.1 (80.0-100.0) fL MCH 32.0 (25.0-35.0) pg MCHC 32.3 (31.0-37.0) g/dL RDW 16.0 H (11.5-15.5) % Plt Count 108 L (150-450) k/uL MPV 9.2 Neutrophils % 84 % Lymphocytes % 8 % Monocytes % 7 % Eosinophils % 1 % Basophils % 0 % Neutrophils # 5.5 (1.3-7.7) k/uL Lymphocytes # 0.5 L (1.0-4.8) k/uL Monocytes # 0.4 (0-1.0) k/uL Eosinophils # 0.0 (0-0.7) k/uL Basophils # 0.0 (0-0.2) k/uL Hypochromasia Slight Macrocytosis Slight PT 15.0 H (10.0-12.5) sec INR 1.4 H (<1.2) APTT 25.5 (22.0-30.0) sec VBG pH (7.31-7.41) VBG pCO2 (37-51) mmHg VBG HCO3 (24-28) mmol/L Sodium 138 (137-145) mmol/L Potassium 4.2 (3.5-5.1) mmol/L Chloride 105 (98-107) mmol/L Carbon Dioxide 20 L (22-30) mmol/L Anion Gap 13 mmol/L BUN 23 H (9-20) mg/dL Creatinine 1.39 H (0.66-1.25) mg/dL Est GFR (CKD-EPI)AfAm 59 (>60 ml/min/1.73 sqM) Est GFR (CKD-EPI)NonAf 51 (>60 ml/min/1.73 sqM) Glucose 180 H (74-99) mg/dL Plasma Lactic Acid Jori (0.7-2.0) mmol/L Calcium 8.8 (8.4-10.2) mg/dL Magnesium 1.9 (1.6-2.3) mg/dL Total Bilirubin 1.9 H (0.2-1.3) mg/dL AST 35 (17-59) U/L ALT 23 (4-49) U/L Alkaline Phosphatase 65 (38-126) U/L Troponin I (0.000-0.034) ng/mL NT-Pro-B Natriuret Pep 6660 pg/mL Total Protein 6.8 (6.3-8.2) g/dL Albumin 3.5 (3.5-5.0) g/dL 03/29/24 03/29/24 03/29/24 Range/Units 01:48 01:48 02:07 WBC (3.8-10.6) k/uL RBC (4.30-5.90) m/uL Hgb (13.0-17.5) gm/dL Hct (39.0-53.0) % MCV (80.0-100.0) fL MCH (25.0-35.0) pg MCHC (31.0-37.0) g/dL RDW (11.5-15.5) % Plt Count (150-450) k/uL MPV Neutrophils % % Lymphocytes % % Monocytes % % Eosinophils % % Basophils % % Neutrophils # (1.3-7.7) k/uL Lymphocytes # (1.0-4.8) k/uL Monocytes # (0-1.0) k/uL Eosinophils # (0-0.7) k/uL Basophils # (0-0.2) k/uL Hypochromasia Macrocytosis PT (10.0-12.5) sec INR (<1.2) APTT (22.0-30.0) sec VBG pH 7.44 H (7.31-7.41) VBG pCO2 31 L (37-51) mmHg VBG HCO3 21 L (24-28) mmol/L Sodium (137-145) mmol/L Potassium (3.5-5.1) mmol/L Chloride (98-107) mmol/L Carbon Dioxide (22-30) mmol/L Anion Gap mmol/L BUN (9-20) mg/dL Creatinine (0.66-1.25) mg/dL Est GFR (CKD-EPI)AfAm (>60 ml/min/1.73 sqM) Est GFR (CKD-EPI)NonAf (>60 ml/min/1.73 sqM) Glucose (74-99) mg/dL Plasma Lactic Acid Jori 1.6 (0.7-2.0) mmol/L Calcium (8.4-10.2) mg/dL Magnesium (1.6-2.3) mg/dL Total Bilirubin (0.2-1.3) mg/dL AST (17-59) U/L ALT (4-49) U/L Alkaline Phosphatase (38-126) U/L Troponin I 0.026 (0.000-0.034) ng/mL NT-Pro-B Natriuret Pep pg/mL Total Protein (6.3-8.2) g/dL Albumin (3.5-5.0) g/dL Disposition Clinical Impression: Congestive heart failure, Acute pulmonary edema Disposition: ADMITTED IP TO THIS [facility] Condition: Stable Is patient prescribed a controlled substance at d/c from ED?: No Referrals: None,Stated [Primary Care Provider] - 1-2 days Time of Disposition: 02:55 Decision Date: 03/29/24 Decision Time: 02:55
[2024-03-29] MEDS: ENALAPRILAT 1.25 MG/ML 1 ML VIAL IVP STA (01:57)
[2024-03-29] MEDS: FUROSEMIDE 10 MG/ML 4 ML VIAL IV STA (01:58)
[2024-03-29 02:14] LABS: ALT 23 U/L (4-49); AST 35 U/L (17-59); African American GFR (CKD) 59 (>60 ml/min/1.73 sqM); Albumin 3.5 g/dL (3.5-5.0); Alkaline Phosphatase 65 U/L (38-126); Anion Gap 13 mmol/L; Blood Urea Nitrogen 23 mg/dL (9-20); Calcium 8.8 mg/dL (8.4-10.2); Carbon Dioxide 20 mmol/L (22-30); Chloride 105 mmol/L (98-107); Glucose 180 mg/dL (74-99); Magnesium 1.9 mg/dL (1.6-2.3); Non-African American GFR(CKD) 51 (>60 ml/min/1.73 sqM); Potassium 4.2 mmol/L (3.5-5.1); Sodium 138 mmol/L (137-145); Total Bilirubin 1.9 mg/dL (0.2-1.3); Total Protein 6.8 g/dL (6.3-8.2)
[2024-03-29 02:15] LABS: VBG PH 7.44 (7.31-7.41)
[2024-03-29 02:23] LABS: NT-Pro-B-Type Natriuretic Pept 6660 pg/mL
[2024-03-29 02:27] LABS: Basophils % (A) 0 %; Eosinophils % (A) 1 %; HCT 46.8 % (39.0-53.0); HGB 15.1 gm/dL (13.0-17.5); Hypochromasia Slight; Lymphocytes # (A) 0.5 k/uL (1.0-4.8); Lymphocytes % (A) 8 %; MCHC 32.3 g/dL (31.0-37.0); MCV 99.1 fL (80.0-100.0); Macrocytosis Slight; Mean Platelet Volume 9.2; Monocytes # (A) 0.4 k/uL (0-1.0); Monocytes % (A) 7 %; Neutrophils # (A) 5.5 k/uL (1.3-7.7); Neutrophils % (A) 84 %; Platelet Count 108 k/uL (150-450); RBC 4.72 m/uL (4.30-5.90); WBC 6.5 k/uL (3.8-10.6)
[2024-03-29] MEDS: ASPIRIN 81 MG PO STA (02:32)
[2024-03-29 02:40] LABS: INR 1.4 (<1.2); Partial Thromboplastin Time 25.5 sec (22.0-30.0)
--- NOTE | 2024-03-29 02:45 | XR ---
EXAM: XR Chest, 2 Views CLINICAL HISTORY: ITS.REASON XR Reason: difficulty breathing TECHNIQUE: Frontal and lateral views of the chest. COMPARISON: Chest radiograph On 02/14/2023 FINDINGS: Hardware: None. Lungs/pleura: Small bilateral pleural effusions. Prominent lung markings. Heart/mediastinum: Enlargement of the cardiac silhouette. Soft tissues: Unremarkable. Bones: No acute fracture. Upper abdomen: Normal. IMPRESSION: Small bilateral pleural effusions. Prominent lung markings, probably representing pulmonary vasculature congestion/edema.
[2024-03-29] MEDS ORDERED: NITROGLYCERIN SL TABS 0.4 MG TAB SUBLINGUAL PRN (02:50)
[2024-03-29] MEDS ORDERED: NALOXONE 0.4 MG/ML 1 ML VIAL IV PRN (02:51)
[2024-03-29] MEDS: NITROGLYCERIN OINT 1 INCH/GM PACKET TOPICAL STA (03:00)
[2024-03-29] MEDS: FUROSEMIDE 10 MG/ML 4 ML VIAL IV ONE (04:44)
[2024-03-29] MEDS ORDERED: DEXTROSE 50% SYRINGE 50 ML IVP PRN ×2 (09:31)
[2024-03-29] MEDS: ENOXAPARIN 100 MG/ML SYRINGE SQ SCH (09:43)
[2024-03-29] MEDS: VALSARTAN 80 MG TAB PO SCH (09:43)
[2024-03-29] MEDS: FUROSEMIDE 40 MG TAB PO SCH (09:43)
--- NOTE | 2024-03-29 10:47 | P.CRDCN ---
History of Present Illness Consult date: 03/29/24 Consult reason: congestive heart failure History of present illness: This is a 73-year-old male patient of Dr. Nusrat Ruiz with past medical history of hypertension, pulmonary embolism on warfarin. We have been asked to evaluate the patient for CHF. Blood pressure 132/91, heart rate 97, respiratory rate 25, pulse ox 94% on BiPAP. Patient is status post 2 doses of IV Lasix 40 mg each this morning as well as 1 dose of IV Vasotec, nitro paste. -EKG: Sinus rhythm with nonspecific changes. -Chest x-ray: Small bilateral pleural effusions. Prominent lung markings probably representing pulmonary vascular congestion or edema. -Laboratory studies: WBC 6.5, hemoglobin 15.1, platelet count 108. INR 1.4. Sodium 138, potassium 4.2, BUN 23 creatinine 1.39. Troponins negative x 3. proBNP 6600. -Home cardiac medications: Warfarin 10 mg daily. -Echocardiogram performed in the office in 2012 revealed normal LV size and function. Mild mitral regurgitation, mild tricuspid regurgitation, mild pulmonic regurgitation. -Treadmill exercise stress test performed in the office in 2013 revealed normal electrocardiographic response to exercise with no evidence of stress-induced ischemia. Review Of Systems: At the time of my exam: CONSTITUTIONAL: Denies fever or chills. HEENT: Denies blurred vision, vision changes, or eye pain. Denies hemoptysis CARDIOVASCULAR: Denies chest pain. Denies orthopnea. Denies PND. Denies palpitations RESPIRATORY: Reports shortness of breath. GASTROINTESTINAL: Denies abdominal pain. Denies nausea or vomiting. HEMATOLOGIC: Denies bleeding disorders. GENITOURINARY: Denies any blood in urine. SKIN: Denies puritis. Denies rash. Physical examination: Gen: This is a 73-year-old black male currently on BiPAP. VS: reviewed HEENT: Head is atraumatic, normocephalic. Pupils equal, round. Sclerae is anicteric. NECK: Supple. No JVD. LUNGS: Clear to auscultation. No wheezes or rhonchi. Tachypneic. HEART: Regular rate and rhythm. No murmur. ABDOMEN: Soft No tenderness. EXTREMITIES: No pedal edema. No calf tenderness. NEUROLOGICAL: Patient is arousable with verbal stimuli. Assessment: Hypertensive urgency Dyspnea with acute hypoxic respiratory failure requiring BiPAP Mild component of heart failure Subtherapeutic INR Thrombocytopenia History of hypertension History of pulmonary embolism on warfarin Plan: Resume Coumadin, pharmacy to dose Start patient on Lovenox 100 mg twice daily Discontinue IV Lasix and start oral Lasix 40 mg daily tomorrow Start patient on valsartan 80 mg twice daily Obtain 2-D echocardiogram and Doppler study to assess cardiac structure and function Further recommendations to follow based upon clinical course Thank you kindly for this consultation. Nurse practitioner note has been reviewed, I agree with documented findings and plan of care. Patient was seen and examined. Past Medical History Past Medical History: Deep Vein Thrombosis (DVT), Prostate Disorder History of Any Multi-Drug Resistant Organisms: None Reported Past Surgical History: Bowel Resection, Prostate Surgery Past Psychological History: No Psychological Hx Reported Smoking Status: Current every day smoker Past Alcohol Use History: Rare Past Drug Use History: None Reported Medications and Allergies Home Medications Medication Instructions Recorded Confirmed Type Warfarin Sodium 10 mg PO DAILY 06/10/22 03/29/24 History metFORMIN HCL [Glucophage] 500 mg PO BID 06/10/22 03/29/24 History Allergies Allergy/AdvReac Type Severity Reaction Status Date / Time Penicillins Allergy Unknown Verified 03/29/24 07:32 Childhood Physical Exam Vitals: Vital Signs Temp Pulse Resp BP Pulse Ox FiO2 03/29/24 07:42 99 30 H 142/100 92 L 03/29/24 07:31 50 03/29/24 07:00 96 28 H 117/81 93 L 03/29/24 05:07 99 25 H 123/85 95 03/29/24 04:57 100 25 H 139/94 95 03/29/24 04:06 101 H 24 109/77 90 L 03/29/24 03:09 106 H 24 95 03/29/24 03:06 50 03/29/24 03:02 112 H 30 H 137/97 93 L 03/29/24 02:56 113 H 35 H 159/105 93 L 03/29/24 01:32 30 H 03/29/24 01:28 116 H 30 H 160/104 91 L 03/29/24 01:08 98.2 F 123 H 26 H 173/109 91 L Intake and Output 03/28/24 03/29/24 03/29/24 22:59 06:59 14:59 Output Total 330 Balance -330 Output: Urine 330 Other: # Voids 1 Weight 108.862 kg Results 03/29/24 01:48 03/29/24 01:48 Cardiac Enzymes 03/29/24 03/29/24 03/29/24 Range/Units 01:48 01:48 03:03 AST 35 (17-59) U/L Troponin I 0.026 0.028 (0.000-0.034) ng/mL Coagulation 03/29/24 Range/Units 01:48 PT 15.0 H (10.0-12.5) sec APTT 25.5 (22.0-30.0) sec CBC 03/29/24 Range/Units 01:48 WBC 6.5 (3.8-10.6) k/uL RBC 4.72 (4.30-5.90) m/uL Hgb 15.1 (13.0-17.5) gm/dL Hct 46.8 (39.0-53.0) % Plt Count 108 L (150-450) k/uL Comprehensive Metabolic Panel 03/29/24 Range/Units 01:48 Sodium 138 (137-145) mmol/L Potassium 4.2 (3.5-5.1) mmol/L Chloride 105 (98-107) mmol/L Carbon Dioxide 20 L (22-30) mmol/L BUN 23 H (9-20) mg/dL Creatinine 1.39 H (0.66-1.25) mg/dL Glucose 180 H (74-99) mg/dL Calcium 8.8 (8.4-10.2) mg/dL AST 35 (17-59) U/L ALT 23 (4-49) U/L Alkaline Phosphatase 65 (38-126) U/L Total Protein 6.8 (6.3-8.2) g/dL Albumin 3.5 (3.5-5.0) g/dL Current Medications Generic Name Dose Route Start Last Admin Trade Name Freq PRN Reason Stop Dose Admin Naloxone HCl 0.2 mg 03/29/24 02:51 Naloxone 0.4 Mg/Ml 1 Ml Vial IV Q2M PRN Opioid Reversal Nitroglycerin 0.4 mg 03/29/24 02:50 Nitroglycerin Sl Tabs 0.4 Mg Tab SUBLINGUAL Q10M PRN Chest Pain Intake and Output 03/28/24 03/29/2425 22:59 06:59 14:59 Output Total 330 Balance -330 Output: Urine 330 Other: # Voids 1 Weight 108.862 kg 03/29/24 01:48 03/29/24 01:48
[2024-03-29 11:37] LABS: Glucose,Whole Blood 246 mg/dL (70-110)
[2024-03-29] MEDS: INSULIN ASPART (NovoLOG) 100 UNIT/ML VIAL SQ SCH (11:46)
--- NOTE | 2024-03-29 15:09 | P.HPIM ---
History of Present Illness H&P Date: 03/29/24 This is a pleasant 73-year-old male who presented to the emergency department with increased shortness of breath with concerns of congestive heart failure acute exacerbation. Patient reports he follows with Dr. Pike in the outpatient setting with a past medical history of DVT, PE on Coumadin, prostate disorder, hypertension, continued ongoing nicotine use. Patient labs reviewed with mild JOSTIN noted with a creatinine of 1.39 and other labs within normal limits other than total bili of 1.9, BNP was 6600 and troponins 0.026, 0.028, 0.034 flat although elevated. Patient chest x-ray shows small bilateral pleural effusions probably representing pulmonary vascular congestion/edema. Patient was placed on BiPAP and doing somewhat better although continues to be lethargic. Patient denies previous history of taking water pills or heart failure. Cardiology was placed on consult. EKG showing sinus tachycardia. Per cardiology documentation, patient did have an echo done in 2012 showing a normal LV size and function with mild mitral and tricuspid regurgitation and pulmonic regurgitation noted. Stress testing in 2013 as well revealed normal response with no evidence of stress-induced ischemia. Review Of Systems: Constitutional: No fever, no chills, no night sweats. No weight change. No weakness, fatigue or lethargy. No daytime sleepiness. EENT: No headache. No blurred vision or double vision, no loss of vision. No loss of Hearing, no ringing in the ears, no dizziness. No nasal drainage or congestion. No epistaxis. No sore throat. Lungs: Reports significant shortness of breath, dry frothy cough, minimal sputum production. No wheezing. Cardiovascular: Reported chest pain, reports of lower extremity edema. No palpitations. No paroxysmal nocturnal dyspnea. No orthopnea. No lightheadedness or dizziness. No syncopal episodes. Abdominal: No abdominal pain. No nausea, vomiting. No diarrhea. No constipation. No bloody or tarry stools.. No loss of appetite. Genitourinary: No dysuria, increased frequency, urgency. No urinary retention. Musculoskeletal: No myalgias. No muscle weakness, no gait dysfunction, no frequent falls. No back pain. No neck pain. Integumentary: No wounds, no lesions. No rash or pruritus. No unusual bruising. No change in hair or nails. Neurologic: No aphasia. No facial droop. No change in mentation. No head injury. No headache. No paralysis. No paresthesia. Psychiatric: No depression. No anxiety. No mood swings. Endocrine: No abnormal blood sugars. No weight change. No excessive sweating or thirst. No cold intolerance. PHYSICAL EXAMINATION: GENERAL: The patient is lethargic although arousable, alert and oriented x3, Well developed, elderly, obese HEENT: Pupils are round and equally reacting to light. EOMI. no scleral icterus. No conjunctival pallor. Normocephalic, atraumatic. No pharyngeal erythema. No th yromegaly. CARDIOVASCULAR: S1 and S2 muffled PULMONARY: diminished breath sounds bilaterally with some scattered rhonchi and faint crackles noted at the bases ABDOMEN: soft. Nontender on exam. obese. non-distended, normoactive bowel sounds. No palpable organomegaly. MUSCULOSKELETAL: No joint swelling or deformity. EXTREMITIES: No cyanosis, clubbing, or pedal edema. Lower extremity edema, n onpitting NEUROLOGICAL: Gross neurological examination did not reveal any focal deficits. Diffuse weakness SKIN: No rashes. Assessment: Shortness of breath with concerns of congestive heart failure, unknown recent EF, BNP 6690 Acute hypoxic respiratory failure secondary to above, requiring BiPAP subtherapeutic INR History of PE/DVT on Coumadin outpatient Obesity with a BMI 34.4 Thrombocytopenia History of hypertension with uncontrolled hypertensive urgency on admission Continued ongoing nicotine abuse GI prophylaxis DVT prophylaxis Full code Plan: Recommend to continue with current medications and management with cardiology following. Patient started on Lasix showing some improvements and will keep on IV Lasix for 1 additional day and follow-up with repeat labs and monitor kidney functions closely Resume Coumadin with pharmacy to dose and also patient has been started on Lovenox with bridging as patient is subtherapeutic. Follow-up on repeat labs Continue with BiPAP and wean FiO2 as tolerated. Patient does not wear oxygen outpatient 2D echo is ordered and pending at this time Will follow-up on repeat labs and replace electrolytes per protocol. D-dimer is ordered and pending and if elevated will undergo VQ scan The impression and plan of care has been dictated by Helena Dickson, nurse practitioner as directed. . I have performed a history and examination and MDM of this patient, discussed the same with the dictator, and agree with the dictator's assessment and plan as written ,documented as a scribe. Based on total visit time, I have performed more than 50% of the visit. Any additional findings or plans will be noted. Past Medical History Past Medical History: Diabetes Mellitus, Deep Vein Thrombosis (DVT), Hypertension, Prostate Disorder History of Any Multi-Drug Resistant Organisms: None Reported Past Surgical History: Bowel Resection, Prostate Surgery Past Psychological History: No Psychological Hx Reported Smoking Status: Current every day smoker Past Alcohol Use History: Rare Past Drug Use History: None Reported Medications and Allergies Home Medications Medication Instructions Recorded Confirmed Type Warfarin Sodium 10 mg PO DAILY 06/10/22 03/29/24 History metFORMIN HCL [Glucophage] 500 mg PO BID 06/10/22 03/29/24 History Allergies Allergy/AdvReac Type Severity Reaction Status Date / Time Penicillins Allergy Unknown Verified 03/29/24 07:32 Childhood Physical Exam Vitals: Vital Signs Temp Pulse Resp BP Pulse Ox FiO2 03/29/24 07:42 99 30 H 142/100 92 L 03/29/24 07:31 50 03/29/24 07:00 96 28 H 117/81 93 L 03/29/24 05:07 99 25 H 123/85 95 03/29/24 04:57 100 25 H 139/94 95 03/29/24 04:06 101 H 24 109/77 90 L 03/29/24 03:09 106 H 24 95 03/29/24 03:06 50 03/29/24 03:02 112 H 30 H 137/97 93 L 03/29/24 02:56 113 H 35 H 159/105 93 L 03/29/24 01:32 30 H 03/29/24 01:28 116 H 30 H 160/104 91 L 03/29/24 01:08 98.2 F 123 H 26 H 173/109 91 L Intake and Output 03/28/24 03/29/24 03/29/24 22:59 06:59 14:59 Output Total 330 Balance -330 Output: Urine 330 Other: # Voids 1 Weight 108.862 kg 108.862 kg Results CBC & Chem 7: 03/29/24 01:48 03/29/24 01:48 Labs: Abnormal Lab Results - Last 24 Hours (Table) 03/29/24 03/29/24 03/29/24 Range/Units 01:48 01:48 01:48 RDW 16.0 H (11.5-15.5) % Plt Count 108 L (150-450) k/uL Lymphocytes # 0.5 L (1.0-4.8) k/uL PT 15.0 H (10.0-12.5) sec INR 1.4 H (<1.2) VBG pH (7.31-7.41) VBG pCO2 (37-51) mmHg VBG HCO3 (24-28) mmol/L Carbon Dioxide 20 L (22-30) mmol/L BUN 23 H (9-20) mg/dL Creatinine 1.39 H (0.66-1.25) mg/dL Glucose 180 H (74-99) mg/dL Total Bilirubin 1.9 H (0.2-1.3) mg/dL 03/29/24 Range/Units 02:07 RDW (11.5-15.5) % Plt Count (150-450) k/uL Lymphocytes # (1.0-4.8) k/uL PT (10.0-12.5) sec INR (<1.2) VBG pH 7.44 H (7.31-7.41) VBG pCO2 31 L (37-51) mmHg VBG HCO3 21 L (24-28) mmol/L Carbon Dioxide (22-30) mmol/L BUN (9-20) mg/dL Creatinine (0.66-1.25) mg/dL Glucose (74-99) mg/dL Total Bilirubin (0.2-1.3) mg/dL Thrombosis Risk Factor Assmnt - Choose All That Apply Any of the Below Risk Factors Present?: Yes Each Factor Represents 1 point: Swollen legs (current) Other Risk Factors: Yes Each Risk Factor Represents 2 Points: Age 61-74 years Each Risk Factor Represents 3 Points: History of DVT/PE Other congenital or acquired thrombophilia - If yes, enter type in comment: No Thrombosis Risk Factor Assessment Total Risk Factor Score: 6 Thrombosis Risk Factor Assessment Level: High Risk
[2024-03-29] MEDS: FUROSEMIDE 10 MG/ML 4 ML VIAL IV SCH (15:32)
[2024-03-29 16:28] LABS: Glucose,Whole Blood 98 mg/dL (70-110)
[2024-03-29] MEDS: WARFARIN 10 MG TAB PO SCH (16:40)
[2024-03-29 20:18] LABS: Glucose,Whole Blood 292 mg/dL (70-110)
[2024-03-30 06:14] LABS: Glucose,Whole Blood 116 mg/dL (70-110)
[2024-03-30 07:35] LABS: Basophils % (A) 0 %; Eosinophils # (A) 0.1 k/uL (0-0.7); Eosinophils % (A) 1 %; HGB 14.6 gm/dL (13.0-17.5); Hypochromasia Slight; Lymphocytes # (A) 0.6 k/uL (1.0-4.8); Lymphocytes % (A) 13 %; MCH 31.1 pg (25.0-35.0); MCHC 31.1 g/dL (31.0-37.0); MCV 99.7 fL (80.0-100.0); Macrocytosis Slight; Mean Platelet Volume 9.2; Monocytes # (A) 0.4 k/uL (0-1.0); Monocytes % (A) 9 %; Neutrophils # (A) 3.5 k/uL (1.3-7.7); Neutrophils % (A) 75 %; Platelet Count 104 k/uL (150-450); RBC 4.71 m/uL (4.30-5.90); RDW 15.7 % (11.5-15.5); WBC 4.7 k/uL (3.8-10.6)
[2024-03-30 07:54] LABS: ALT 20 U/L (4-49); AST 32 U/L (17-59); African American GFR (CKD) 48 (>60 ml/min/1.73 sqM); Albumin 2.8 g/dL (3.5-5.0); Alkaline Phosphatase 62 U/L (38-126); Anion Gap 7 mmol/L; Blood Urea Nitrogen 30 mg/dL (9-20); Calcium 8.3 mg/dL (8.4-10.2); Carbon Dioxide 29 mmol/L (22-30); Chloride 102 mmol/L (98-107); Glucose 102 mg/dL (74-99); Non-African American GFR(CKD) 42 (>60 ml/min/1.73 sqM); Potassium 3.7 mmol/L (3.5-5.1); Sodium 138 mmol/L (137-145); Total Bilirubin 2.3 mg/dL (0.2-1.3); Total Protein 5.9 g/dL (6.3-8.2)
[2024-03-30 08:06] LABS: INR 2.5 (<1.2); Prothrombin Time 25.1 sec (10.0-12.5)
--- NOTE | 2024-03-30 10:01 | NM ---
EXAMINATION TYPE: NM pul vent and perfuse DATE OF EXAM: 03/30/2024 CLINICAL INDICATION: Male, 73 years old with history of elevated d dimer; COMPARISON: Chest radiograph 03/29/2024, 02/14/2023 TECHNIQUE: Utilizing inhalation of 36.0 mCi Tc 99m DTPA aerosol and intravenous injection of 5.3 mCi of Tc 99m MAA, ventilation and perfusion images are acquired post injection in multiple projections. FINDINGS: Poor radiotracer distribution within the bilateral lower lobes on perfusion imaging likely related to pleural effusions. Central airway deposition of radiotracer bilaterally on ventilation imaging. No o vert mismatch defect. IMPRESSION: 1. Low probability for pulmonary embolism. 2. Suggestive COPD changes. [facility], , 03/30/2024 9:58 AM
[2024-03-30 11:53] LABS: Glucose,Whole Blood 184 mg/dL (70-110)
--- NOTE | 2024-03-30 12:15 | CA ---
Transthoracic Echo Report Name: Pedro Benitez Age: 73 Gender: M : 1950 Exam Date: 03/29/2024 09:10 Exam Location: [facility] Ht (in): 70 Wt (lb): 240 Ordering Physician: Yohannes High MD Attending/Referring Phys: Director Of Career Resources Justina Borges RDCS Procedure CPT: Indications: chf exacerbation Cardiac Hx: CHF Technical Quality: Poor Contrast 1: Definity Total Dose (mL): 2 Contrast 2: Total Dose (mL): MEASUREMENTS (Male / Female) Normal Values 2D ECHO LV Diastolic Diameter PLAX 5.5 cm 4.2 - 5.9 / 3.9 - 5.3 cm LV Systolic Diameter PLAX 5.0 cm IVS Diastolic Thickness 1.7 cm 0.6 - 1.0 / 0.6 - 0.9 cm LVPW Diastolic Thickness 1.4 cm 0.6 - 1.0 / 0.6 - 0.9 cm LV Relative Wall Thickness 0.6 RV Internal Dim ED PLAX 2.4 cm LVOT Diameter 2.1 cm LA Systolic Diameter LX 4.8 cm 3.0 - 4.0 / 2.7 - 3.8 cm LA Volume 72.3 cm??? 18 - 58 / 22 - 52 cm??? LA Volume Index 30.7 cm???/m??? 16 - 28 cm???/m??? M-MODE Aortic Root Diameter MM 3.2 cm LA Systolic Diameter MM 5.7 cm LA Ao Ratio MM 1.8 AV Cusp Separation MM 0.9 cm DOPPLER AV Peak Velocity 229.6 cm/s AV Peak Gradient 21.1 mmHg AV Mean Velocity 167.8 cm/s AV Mean Gradient 13.3 mmHg AV Velocity Time Integral 40.9 cm AI Peak Velocity 420.1 cm/s AI Peak Gradient 70.6 mmHg AI Pressure Half Time 613.2 ms LVOT Peak Velocity 65.0 cm/s LVOT Peak Gradient 1.7 mmHg LVOT Velocity Time Integral 18.2 cm LVOT Stroke Volume 64.7 cm??? LVOT Stroke Volume Index 28.7 ml/m??? LVOT Cardiac Index 2744.4 cm???/min???m??? AV Area Cont Eq vti 1.6 cm??? AV Area Cont Eq pk 1.0 cm??? MV Area PHT 3.8 cm??? Mitral E Point Velocity 66.8 cm/s Mitral A Point Velocity 84.5 cm/s Mitral E to A Ratio 0.8 MV Deceleration Time 199.4 ms TR Peak Velocity 320.9 cm/s TR Peak Gradient 41.2 mmHg FINDINGS Left Ventricle Left ventricular ejection fraction is estimated at 20-25%. Severely increased septal wall thickness. Severely reduced global left ventricular systolic function. left ventricular dilatation. Right Ventricle Mild right ventricular dilatation. Mild pulmonary hypertension. Right Atrium Right atrium not well visualized. Left Atrium Moderately increased left atrial diameter. Mildly increased left atrial volume. Mildly increased left atrial area. Mitral Valve Papillary muscle dysfunction of the mitral valve due to annular dilatation and ventricular dysfunction. [id number] mitral regurgitation. Aortic Valve Low-flow low-gradient aortic stenosis with a peak velocity of 2.3 m/s, peak gradient 21 mmHg, mean gradient 13 mmHg, and estimated aortic valve area of 1.0 cm???. Moderate aortic regurgitation. Tricuspid Valve Structurally normal tricuspid valve. Moderate tricuspid regurgitation. No tricuspid stenosis. Pulmonic Valve Structurally normal pulmonic valve. Trace pulmonic regurgitation. No pulmonic stenosis. Pericardium Minimal pericardial effusion (normal variant). Left pleural effusion. Aorta Normal size aortic root and proximal ascending aorta. CONCLUSIONS Indication acute on chronic CHF exacerbation and valvular heart disease LVEF 20 to 25% Severe concentric LVH. Akinetic inferior wall Dilated LV cavity. Calcific aortic valve, moderate aortic regurgitation, moderate aortic stenosis, mean gradient 13 mmHg with low-flow low gradient state. VTI ratio 0.3 VTI ratio 0 point Moderate to severe mitral regurgitation, likely ischemic from restricted opening of posterior mitral leaflet from inferior wall hypokinesia Previewed by: Dr Heri Tavera (Electronically Signed) Final Date: 30 March 2024 12:14
--- NOTE | 2024-03-30 13:36 | P.PN ---
Subjective Progress Note Date: 03/30/24 This is a 73-year-old male patient of Dr. Nusrat Ruiz with past medical history of hypertension, pulmonary embolism on warfarin. We have been asked to evaluate the patient for CHF. Patient presented to the hospital due to shortness of breath. He is seen now on the cardiac stepdown unit. He is on BiPAP and seems somewhat lethargic now. No complaints of chest pain. Blood pressure 132/91, heart rate 97, respiratory rate 25, pulse ox 94% on BiPAP. Patient is status post 2 doses of IV Lasix 40 mg each this morning as well as 1 dose of IV Vasotec, nitro paste. Noted that INR is subtherapeutic. -EKG: Sinus rhythm with nonspecific changes. -Chest x-ray: Small bilateral pleural effusions. Prominent lung markings probably representing pulmonary vascular congestion or edema. -Laboratory studies: WBC 6.5, hemoglobin 15.1, platelet count 108. INR 1.4. Sodium 138, potassium 4.2, BUN 23 creatinine 1.39. Troponins negative x 3. proBNP 6600. -Home cardiac medications: Warfarin 10 mg daily. -Echocardiogram performed in the office in 2012 revealed normal LV size and function. Mild mitral regurgitation, mild tricuspid regurgitation, mild pulmonic regurgitation. -Treadmill exercise stress test performed in the office in 2012 revealed normal electrocardiographic response to exercise with no evidence of stress-induced ischemia. 03/30 Patient is seen today on the cardiac stepdown unit. He denies having any chest pain and no shortness of breath. His INR came back this morning at 2.5 and subcu Lovenox may be discontinued and patient continued on Coumadin only. Blood pressure readings remain overall elevated with most recent 1 161/105, heart rate is 100, pulse ox 96% on 4 L nasal cannula. Other lab work noted BUN 30, creatinine 1.64, potassium 3.7. A1c is 7. Echocardiogram reveals EF of 20 to 25%, severe concentric LVH, moderate aortic regurgitation, moderate aortic stenosis with mean gradient of 13 mmHg and low- flow low gradient state. Moderate to severe mitral regurgitation likely ischemic from restricted opening of the posterior mitral leaflet from inferior wall hypokinesia. Physical examination: Gen: This is a 73-year-old black male currently on nasal cannula oxygen. VS: reviewed HEENT: Head is atraumatic, normocephalic. Pupils equal, round. Sclerae is anicteric. NECK: Supple. No JVD. LUNGS: Clear to auscultation. No wheezes or rhonchi. HEART: Regular rate and rhythm. No murmur. ABDOMEN: Soft No tenderness. EXTREMITIES: No pedal edema. No calf tenderness. NEUROLOGICAL: Patient is alert and oriented x 3. Assessment: Hypertensive urgency Dyspnea with acute hypoxic respiratory failure requiring BiPAP Mild component of heart failure Subtherapeutic INR Thrombocytopenia History of hypertension History of pulmonary embolism on warfarin Plan: Continue Coumadin, pharmacy to dose Discontinue Lovenox as INR is therapeutic Continue oral Lasix 40 mg daily Continue valsartan but change dosing to once a day at 160 mg Further recommendations to follow based upon clinical course Nurse practitioner note has been reviewed, I agree with documented findings and plan of care. Patient was seen and examined. Objective - Vital Signs Vital signs: Vital Signs Temp 98 F 03/30/24 09:00 Pulse 100 03/30/24 09:00 Resp 22 03/30/24 09:00 BP 161/105 03/30/24 09:00 Pulse Ox 96 03/30/24 09:00 FiO2 50 03/29/24 11:38 Intake & Output 03/29/24 03/30/24 03/30/24 18:59 06:59 18:59 Intake Total 120 254 Output Total 1100 1400 Balance -980 -1146 Weight 108.862 kg Intake: IV 14 .9 10 LASIX 4 Oral 120 240 Output: Urine 1100 1400 - Labs CBC & Chem 7: 03/30/24 06:09 03/30/24 06:09 Labs: Abnormal Lab Results - Last 24 Hours (Table) 03/29/24 03/29/24 03/29/24 Range/Units 11:35 14:05 20:16 RDW (11.5-15.5) % Plt Count (150-450) k/uL Lymphocytes # (1.0-4.8) k/uL PT (10.0-12.5) sec INR (<1.2) D-Dimer 25.25 H (<0.60) mg/L FEU BUN (9-20) mg/dL Creatinine (0.66-1.25) mg/dL Glucose (74-99) mg/dL POC Glucose (mg/dL) 246 H 292 H (70-110) mg/dL Calcium (8.4-10.2) mg/dL Total Bilirubin (0.2-1.3) mg/dL Total Protein (6.3-8.2) g/dL Albumin (3.5-5.0) g/dL 03/30/24 03/30/24 03/30/24 Range/Units 06:09 06:09 06:09 RDW 15.7 H (11.5-15.5) % Plt Count 104 L (150-450) k/uL Lymphocytes # 0.6 L (1.0-4.8) k/uL PT 25.1 H (10.0-12.5) sec INR 2.5 H (<1.2) D-Dimer (<0.60) mg/L FEU BUN 30 H (9-20) mg/dL Creatinine 1.64 H (0.66-1.25) mg/dL Glucose 102 H (74-99) mg/dL POC Glucose (mg/dL) (70-110) mg/dL Calcium 8.3 L (8.4-10.2) mg/dL Total Bilirubin 2.3 H (0.2-1.3) mg/dL Total Protein 5.9 L (6.3-8.2) g/dL Albumin 2.8 L (3.5-5.0) g/dL 03/30/24 Range/Units 06:13 RDW (11.5-15.5) % Plt Count (150-450) k/uL Lymphocytes # (1.0-4.8) k/uL PT (10.0-12.5) sec INR (<1.2) D-Dimer (<0.60) mg/L FEU BUN (9-20) mg/dL Creatinine (0.66-1.25) mg/dL Glucose (74-99) mg/dL POC Glucose (mg/dL) 116 H (70-110) mg/dL Calcium (8.4-10.2) mg/dL Total Bilirubin (0.2-1.3) mg/dL Total Protein (6.3-8.2) g/dL Albumin (3.5-5.0) g/dL
[2024-03-30 16:56] LABS: Glucose,Whole Blood 108 mg/dL (70-110)
[2024-03-30] MEDS: WARFARIN 1 MG TAB PO ONE (17:58)
--- NOTE | 2024-03-30 19:51 | P.CNPUL ---
History of Present Illness Consult date: 03/30/24 Reason for consult: dyspnea History of present illness: 73-year-old -[place] male patient, hospitalized for increased shortness of breath. The patient has been progressively getting short of breath over the past 2 months the patient has also encountered lower extremity edema. He did also have some nonspecific midsternal chest pain. Based on that, he presented to the hospital. The patient is known to have a remote history of DVT and pulmonary embolism and the patient has been maintained on anticoagulation with warfarin since 2013. He is known to have hypertension hyperlipidemia and chronic kidney disease, stage III. Upon arrival, his EKG was sinus without any acute ischemic changes. Chest x-ray was consistent with CHF and pulmonary edema. The white cell count is 6.5, troponin x 2 has been negative. proBNP level was 6600. INR was at 1.4. Echocardiogram was done and the patient has impaired LV function with an ejection fraction of 20 to 25%. Patient also has moderate degree of aortic stenosis moderate aortic regurgitation, calcified aortic valve, moderate to severe mitral regurgitation likely ischemic from rest ricted opening of the posterior mitral leaflet from inferior wall hypokinesis. Initially, the patient was on a BiPAP and after being diuresed with IV Lasix, the patient's respiratory status improved and the patient is currently on 4 L of oxygen by nasal cannula. The patient was also provided warfarin. INR is therapeutic for now. Cardiology has been consulted. Review of Systems Constitutional: Reports fatigue Eyes: denies as per HPI, denies blurred vision, denies bulging eye, denies decreased vision, denies diplopia, denies discharge, denies dry eye, denies irritation, denies itching, denies pain, denies photophobia, denies loss of peripheral vision, denies loss of vision, denies tunnel vision/blind spots Ears: deny: decreased hearing, ear discharge, earache, tinnitus Ears, nose, mouth and throat: Reports as per HPI Breasts: absent: as per HPI, gynecomastia Cardiovascular: Reports decreased exercise tolerance, Reports dyspnea on exertion Respiratory: Reports dyspnea Gastrointestinal: Reports as per HPI Genitourinary: Reports as per HPI Musculoskeletal: Reports as per HPI Musculoskeletal: absent: ankle pain, ankle stiffness, ankle swelling, as per HPI, elbow pain, elbow stiffness, elbow swelling, foot pain, foot stiffness, foot swelling, hand pain, hand stiffness, hand swelling, hip pain, hip stiffness, hip swelling, knee pain, knee stiffness, knee swelling, shoulder pain, shoulder stiffness, shoulder swelling, wrist pain, wrist stiffness, wrist swelling Integumentary: Reports as per HPI Neurological: Reports as per HPI Psychiatric: Reports as per HPI Endocrine: Reports as per HPI Hematologic/Lymphatic: Reports as per HPI Allergic/Immunologic: Reports as per HPI Past Medical History Past Medical History: Heart Failure, Diabetes Mellitus, Deep Vein Thrombosis (DVT) (2009), Hypertension, Prostate Disorder, Pulmonary Embolus (PE) (maintained on warfarin, 2009), Renal Disease History of Any Multi-Drug Resistant Organisms: None Reported Past Surgical History: Bowel Resection, Prostate Surgery Past Psychological History: No Psychological Hx Reported Smoking Status: Current every day smoker Past Alcohol Use History: Rare Past Drug Use History: None Reported Medications and Allergies Home Medications Medication Instructions Recorded Confirmed Type Warfarin Sodium 10 mg PO DAILY 06/10/22 03/29/24 History metFORMIN HCL [Glucophage] 500 mg PO BID 06/10/22 03/29/24 History Allergies Allergy/AdvReac Type Severity Reaction Status Date / Time cheese Allergy Unknown Verified 03/30/24 12:34 Penicillins Allergy Unknown Verified 03/29/24 07:32 Childhood Physical Exam Vitals: Vital Signs Temp Pulse Resp BP Pulse Ox 03/30/24 11:20 97.3 F L 113 H 20 152/98 92 L 03/30/24 09:00 98 F 100 22 161/105 96 03/30/24 04:00 98.1 F 104 H 20 146/92 92 L 03/29/24 23:35 98.4 F 103 H 20 136/87 96 03/29/24 20:00 98.3 F 111 H 24 119/79 94 L 03/29/24 16:00 98 27 H 134/87 95 Intake and Output 03/29/24 03/30/24 03/30/24 22:59 06:59 14:59 Intake Total 254 120 Output Total 1400 Balance 254 -1400 120 Intake: IV 14 .9 10 LASIX 4 Oral 240 120 Output: Urine 1400 The patient appeared well nourished and normally developed. Vital signs as documented. Patient is currently on 4 L of oxygen via nasal cannula Head exam is unremarkable. No scleral icterus or corneal arcus noted. Neck is with jugular venous distension, thyromegaly, or carotid bruits. Carotid upstrokes are brisk bilaterally. Lungs reveal bibasilar crackles Cardiac exam reveals the PMI to be normally sized and situated. Rhythm is regular. First and second heart sounds normal. No murmurs, rubs or gallops. Abdominal exam reveals normal bowel sounds, no masses, no organomegaly and no aortic enlargement. Extremities are edematous and both femoral and pedal pulses are normal. Examination of the skin revealed no evidence of significant rashes, suspicious appearing nevi or other concerning lesions. Neurologically, the patient is awake and alert and the patient does not have any focal neurological deficit. Cranial nerves are essentially intact. Results - Laboratory Findings CBC and BMP: 03/30/24 06:09 03/30/24 06:09 PT/INR, D-dimer PT 25.1 sec (10.0-12.5) H 03/30/24 06:09 INR 2.5 (<1.2) H 03/30/24 06:09 D-Dimer 25.25 mg/L FEU (<0.60) H 03/29/24 14:05 Abnormal lab findings: Abnormal Labs 03/29/24 03/29/24 03/29/24 01:48 01:48 01:48 RDW 16.0 H Plt Count 108 L Lymphocytes # 0.5 L PT 15.0 H INR 1.4 H D-Dimer VBG pH VBG pCO2 VBG HCO3 Carbon Dioxide 20 L BUN 23 H Creatinine 1.39 H Glucose 180 H POC Glucose (mg/dL) Hemoglobin A1c Calcium Total Bilirubin 1.9 H Total Protein Albumin 03/29/24 03/29/24 03/29/24 02:07 11:35 14:05 RDW Plt Count Lymphocytes # PT INR D-Dimer 25.25 H VBG pH 7.44 H VBG pCO2 31 L VBG HCO3 21 L Carbon Dioxide BUN Creatinine Glucose POC Glucose (mg/dL) 246 H Hemoglobin A1c Calcium Total Bilirubin Total Protein Albumin 03/29/24 03/30/24 03/30/24 20:16 06:09 06:09 RDW Plt Count Lymphocytes # PT 25.1 H INR 2.5 H D-Dimer VBG pH VBG pCO2 VBG HCO3 Carbon Dioxide BUN Creatinine Glucose POC Glucose (mg/dL) 292 H Hemoglobin A1c 7.0 H Calcium Total Bilirubin Total Protein Albumin 03/30/24 03/30/24 03/30/24 06:09 06:09 06:13 RDW 15.7 H Plt Count 104 L Lymphocytes # 0.6 L PT INR D-Dimer VBG pH VBG pCO2 VBG HCO3 Carbon Dioxide BUN 30 H Creatinine 1.64 H Glucose 102 H POC Glucose (mg/dL) 116 H Hemoglobin A1c Calcium 8.3 L Total Bilirubin 2.3 H Total Protein 5.9 L Albumin 2.8 L 03/30/24 11:50 RDW Plt Count Lymphocytes # PT INR D-Dimer VBG pH VBG pCO2 VBG HCO3 Carbon Dioxide BUN Creatinine Glucose POC Glucose (mg/dL) 184 H Hemoglobin A1c Calcium Total Bilirubin Total Protein Albumin - Diagnostic Findings Chest x-ray: image reviewed Assessment and Plan Plan: Acute hypoxic respiratory failure, initially was on a BiPAP and the patient has been placed on 4 L of oxygen by nasal cannula Acute CHF/pulmonary edema Acute systolic heart failure with an ejection fraction of 20 to 25% Valvular heart disease, moderate to severe mitral regurgitation and aortic regurgitation. Likely ischemic in nature. The patient has wall motion abnormalities based on echocardiogram findings. Rule out underlying coronary artery disease Chronic stage III kidney disease Hypertension Diabetes mellitus type 2 Hyperlipidemia Lower extremity edema Remote history of DVT/pulmonary embolism back in 2013 maintained on long-term anticoagulation with warfarin with a therapeutic PT/INR. VQ scan is low probability Plan Titrate oxygen flow to maintain saturation above 90%, currently on 4 L Continue IV Lasix Cardiology in regards to the congestion heart failure and valvular heart disease. Consider cardiac catheterization Monitor PT/INR Continue warfarin Will follow
[2024-03-30 20:32] LABS: Glucose,Whole Blood 194 mg/dL (70-110)
[2024-03-30 22:07] VITALS: RESP 20
--- NOTE | 2024-03-31 05:49 | P.PN ---
Subjective Progress Note Date: 03/30/24 This is a pleasant 73-year-old male who presented to the emergency department with increased shortness of breath with concerns of congestive heart failure acute exacerbation. Patient reports he follows with Dr. Pike in the outpatient setting with a past medical history of DVT, PE on Coumadin, prostate disorder, hypertension, continued ongoing nicotine use. Patient labs reviewed with mild JOSTIN noted with a creatinine of 1.39 and other labs within normal limits other than total bili of 1.9, BNP was 6600 and troponins 0.026, 0.028, 0.034 flat although elevated. Patient chest x-ray shows small bilateral pleural effusions probably representing pulmonary vascular congestion/edema. Patient was placed on BiPAP and doing somewhat better although continues to be lethargic. Patient denies previous history of taking water pills or heart failure. Cardiology was placed on consult. EKG showing sinus tachycardia. Per cardiology documentation, patient did have an echo done in 2012 showing a normal LV size and function with mild mitral and tricuspid regurgitation and pulmonic regurgitation noted. Stress testing in 2012 as well revealed normal response with no evidence of stress-induced ischemia. 03/30/2024 Patient is seen in follow-up today with cardiology following and pulmonary consulted. Patient is off BiPAP currently on 4 L via nasal cannula denying worsening shortness of breath. Patient did have 2D echo done showing an EF of 20 to 25% with severe concentric LVH and moderate aortic regurgitation with moderate aortic stenosis and moderate to severe mitral regurgitation likely ischemic with inferior wall hypokinesia. Patient kidney functions trending up and will transition from IV Lasix to oral Lasix daily starting tomorrow. Patient is afebrile with no reports of chest pain or palpitations. Patient is currently sitting up in the chair and recommend increased activity as tolerated. Review of systems: Constitutional: No reports of fatigue, fever, or chills Cardiovascular: No reports of chest pain or palpitations Respiratory: No reports of shortness of breath or cough GI: No reports of nausea, vomiting, or diarrhea : No reports of dysuria or retention Neurovascular: No reports of weakness or numbness All medications have been reviewed PHYSICAL EXAMINATION: GENERAL: The patient is awake, alert and oriented x3, Well developed, elderly, obese HEENT: Pupils are round and equally reacting to light. EOMI. no scleral icterus. No conjunctival pallor. Normocephalic, atraumatic. No pharyngeal erythema. No thyromegaly. CARDIOVASCULAR: S1 and S2 muffled PULMONARY: diminished breath sounds bilaterally with some scattered rhonchi and faint crackles noted at the bases ABDOMEN: soft. Nontender on exam. obese. non-distended, normoactive bowel sounds. No palpable organomegaly. MUSCULOSKELETAL: No joint swelling or deformity. EXTREMITIES: No cyanosis, clubbing, or pedal edema. Lower extremity edema, nonpitting NEUROLOGICAL: Gross neurological examination did not reveal any focal deficits. Diffuse weakness SKIN: No rashes. Assessment: Shortness of breath secondary to acute congestive heart failure, systolic dysfunction, EF is 20 to 25% Acute hypoxic respiratory failure secondary to CHF, requiring BiPAP subtherapeutic INR on Coumadin, improved History of PE/DVT on Coumadin outpatient Obesity with a BMI 34.4 Thrombocytopenia History of hypertension with uncontrolled hypertensive urgency on admission Continued ongoing nicotine abuse GI prophylaxis DVT prophylaxis Full code Plan: Recommend to continue with current medications and management with cardiology following. Patient was continued on IV Lasix with kidney functions worsening will transition to oral Lasix daily Monitor kidney functions and repeat labs in a.m. Continue Coumadin with pharmacy to dose and repeat INR is therapeutic, Lovenox being discontinued Continue with BiPAP and wean FiO2 as tolerated. Patient reports he has not worn the BiPAP since yesterday currently maintained on 4 L 2D echo as mentioned above with an EF of 20 to 25% D-dimer was significantly elevated at 24 and VQ scan was done showing low probability of PE Will consult pulmonary as well and appreciate input and recommendations May need home O2 testing and will need close cardiology follow-up for heart failure Encouraged increase activity as tolerated The impression and plan of care has been dictated by Helena Dickson, nurse practitioner as directed. . I have performed a history and examination and MDM of this patient, discussed the same with the dictator, and agree with the dictator's assessment and plan as written ,documented as a scribe. Based on total visit time, I have performed more than 50% of the visit. Any additional findings or plans will be noted. Objective - Vital Signs Vital signs: Vital Signs Temp 98 F 03/30/24 09:00 Pulse 100 03/30/24 09:00 Resp 22 03/30/24 09:00 BP 161/105 03/30/24 09:00 Pulse Ox 96 03/30/24 09:00 FiO2 50 03/29/24 11:38 Intake & Output 03/29/24 03/30/24 03/30/24 18:59 06:59 18:59 Intake Total 120 254 Output Total 1100 1400 Balance -980 -1146 Weight 108.862 kg Intake: IV 14 .9 10 LASIX 4 Oral 120 240 Output: Urine 1100 1400 - Labs CBC & Chem 7: 03/30/24 06:09 03/30/24 06:09 Labs: Abnormal Lab Results - Last 24 Hours (Table) 03/29/24 03/29/24 03/29/24 Range/Units 11:35 14:05 20:16 RDW (11.5-15.5) % Plt Count (150-450) k/uL Lymphocytes # (1.0-4.8) k/uL PT (10.0-12.5) sec INR (<1.2) D-Dimer 25.25 H (<0.60) mg/L FEU BUN (9-20) mg/dL Creatinine (0.66-1.25) mg/dL Glucose (74-99) mg/dL POC Glucose (mg/dL) 246 H 292 H (70-110) mg/dL Calcium (8.4-10.2) mg/dL Total Bilirubin (0.2-1.3) mg/dL Total Protein (6.3-8.2) g/dL Albumin (3.5-5.0) g/dL 03/30/24 03/30/24 03/30/24 Range/Units 06:09 06:09 06:09 RDW 15.7 H (11.5-15.5) % Plt Count 104 L (150-450) k/uL Lymphocytes # 0.6 L (1.0-4.8) k/uL PT 25.1 H (10.0-12.5) sec INR 2.5 H (<1.2) D-Dimer (<0.60) mg/L FEU BUN 30 H (9-20) mg/dL Creatinine 1.64 H (0.66-1.25) mg/dL Glucose 102 H (74-99) mg/dL POC Glucose (mg/dL) (70-110) mg/dL Calcium 8.3 L (8.4-10.2) mg/dL Total Bilirubin 2.3 H (0.2-1.3) mg/dL Total Protein 5.9 L (6.3-8.2) g/dL Albumin 2.8 L (3.5-5.0) g/dL 03/30/24 Range/Units 06:13 RDW (11.5-15.5) % Plt Count (150-450) k/uL Lymphocytes # (1.0-4.8) k/uL PT (10.0-12.5) sec INR (<1.2) D-Dimer (<0.60) mg/L FEU BUN (9-20) mg/dL Creatinine (0.66-1.25) mg/dL Glucose (74-99) mg/dL POC Glucose (mg/dL) 116 H (70-110) mg/dL Calcium (8.4-10.2) mg/dL Total Bilirubin (0.2-1.3) mg/dL Total Protein (6.3-8.2) g/dL Albumin (3.5-5.0) g/dL
[2024-03-31 06:15] LABS: Glucose,Whole Blood 220 mg/dL (70-110)
[2024-03-31 07:36] LABS: African American GFR (CKD) 59 (>60 ml/min/1.73 sqM); Anion Gap 5 mmol/L; Blood Urea Nitrogen 30 mg/dL (9-20); Calcium 8.3 mg/dL (8.4-10.2); Carbon Dioxide 30 mmol/L (22-30); Chloride 99 mmol/L (98-107); Glucose 184 mg/dL (74-99); Non-African American GFR(CKD) 51 (>60 ml/min/1.73 sqM); Potassium 3.7 mmol/L (3.5-5.1); Sodium 134 mmol/L (137-145)
[2024-03-31 07:42] LABS: INR 2.7 (<1.2); Prothrombin Time 26.9 sec (10.0-12.5)
[2024-03-31] MEDS: VALSARTAN 160 MG TAB PO SCH (08:30)
[2024-03-31] MEDS: FUROSEMIDE 40 MG TAB PO SCH (08:30)
[2024-03-31] MEDS ORDERED: METOPROLOL SUCCINATE (ER) 50 MG TAB.ER.24H PO SCH (11:00)
[2024-03-31 11:34] LABS: Glucose,Whole Blood 115 mg/dL (70-110)
[2024-03-31 12:46] VITALS: BP 135/87; PULSE 105; TEMP 98
[2024-03-31] MEDS: carvediloL 3.125 MG TAB PO SCH (12:48)
[2024-03-31] MEDS ORDERED: WARFARIN 2.5 MG TAB PO ONE (18:00)
--- NOTE | 2024-03-31 19:28 | P.PN ---
Subjective Progress Note Date: 03/31/24 73-year-old -[place] male patient, hospitalized for increased shortness of breath. The patient has been progressively getting short of breath over the past 2 months the patient has also encountered lower extremity edema. He did also have some nonspecific midsternal chest pain. Based on that, he presented to the hospital. The patient is known to have a remote history of DVT and pulmonary embolism and the patient has been maintained on anticoagulation with warfarin since 2013. He is known to have hypertension hyperlipidemia and chronic kidney disease, stage III. Upon arrival, his EKG was sinus without any acute ischemic changes. Chest x-ray was consistent with CHF and pulmonary edema . The white cell count is 6.5, troponin x 2 has been negative. proBNP level was 6600. INR was at 1.4. Echocardiogram was done and the patient has impaired LV function with an ejection fraction of 20 to 25%. Patient also has moderate degree of aortic stenosis moderate aortic regurgitation, calcified aortic valve, moderate to severe mitral regurgitation likely ischemic from restricted opening of the posterior mitral leaflet from inferior wall hypokinesis. Initially, the patient was on a BiPAP and after being diuresed with IV Lasix, the patient's respiratory status improved and the patient is currently on 4 L of oxygen by nasal cannula. The patient was also provided warfarin. INR is therapeutic for now. Cardiology has been consulted. 03/31/2024, patient is being seen for a follow-up. Feeling better. Less short of breath. No new complaints. CHF seems to be better optimized. No chest pain. Currently on room air oxygen with a pulse ox of 90%. INR is at 2.7. BUN 30 with a creatinine of 1.39 and sodium levels at 134. No other significant events overnight. Objective - Vital Signs Vital signs: Vital Signs Temp 98 F 03/31/24 12:00 Pulse 105 H 03/31/24 12:00 Resp 20 03/31/24 12:00 BP 135/87 03/31/24 12:00 Pulse Ox 90 L 03/31/24 12:00 FiO2 50 03/29/24 11:38 Intake & Output 03/30/24 03/31/24 03/31/24 18:59 06:59 18:59 Intake Total 1080 780 236 Output Total 400 Balance 680 780 236 Weight 110.8 kg Intake: Oral 1080 780 236 Output: Urine 400 Other: # Voids 3 - Exam The patient appeared well nourished and normally developed. Vital signs as documented. Patient is currently on room air oxygen Head exam is unremarkable. No scleral icterus or corneal arcus noted. Neck is with jugular venous distension, thyromegaly, or carotid bruits. Carotid upstrokes are brisk bilaterally. Lungs reveal bibasilar crackles Cardiac exam reveals the PMI to be normally sized and situated. Rhythm is regular. First and second heart sounds normal. No murmurs, rubs or gallops. Abdominal exam reveals normal bowel sounds, no masses, no organomegaly and no aortic enlargement. Extremities are edematous and both femoral and pedal pulses are normal. Examination of the skin revealed no evidence of significant rashes, suspicious appearing nevi or other concerning lesions. Neurologically, the patient is awake and alert and the patient does not have any focal neurological deficit. Cranial nerves are essentially intact. - Labs CBC & Chem 7: 03/30/24 06:09 03/31/24 06:39 Labs: Abnormal Lab Results - Last 24 Hours (Table) 03/30/24 03/31/24 03/31/24 Range/Units 20:31 06:14 06:39 PT 26.9 H (10.0-12.5) sec INR 2.7 H (<1.2) Sodium (137-145) mmol/L BUN (9-20) mg/dL Creatinine (0.66-1.25) mg/dL Glucose (74-99) mg/dL POC Glucose (mg/dL) 194 H 220 H (70-110) mg/dL Calcium (8.4-10.2) mg/dL 03/31/24 03/31/24 Range/Units 06:39 11:32 PT (10.0-12.5) sec INR (<1.2) Sodium 134 L (137-145) mmol/L BUN 30 H (9-20) mg/dL Creatinine 1.39 H (0.66-1.25) mg/dL Glucose 184 H (74-99) mg/dL POC Glucose (mg/dL) 115 H (70-110) mg/dL Calcium 8.3 L (8.4-10.2) mg/dL Assessment and Plan Plan: Acute hypoxic respiratory failure, initially was on a BiPAP and the patient improved and the patient is currently on room air oxygen, improving Acute CHF/pulmonary edema, improving Acute systolic heart failure with an ejection fraction of 20 to 25% Valvular heart disease, moderate to severe mitral regurgitation and aortic regurgitation. Likely ischemic in nature. The patient has wall motion abnormalities based on echocardiogram findings. Rule out underlying coronary artery disease Chronic stage III kidney disease Hypertension Diabetes mellitus type 2 Hyperlipidemia Lower extremity edema Remote history of DVT/pulmonary embolism back in 2013 maintained on long-term anticoagulation with warfarin with a therapeutic PT/INR. VQ scan is low probability Plan Titrate oxygen flow to maintain saturation above 90%, currently on room air oxygen Continue diuretics with Lasix Cardiology in regards to the congestion heart failure and valvular heart disease. Consider cardiac catheterization Monitor PT/INR, currently INR therapeutic Continue warfarin Will follow
== END 2024-03-31 16:35 | disposition home or self-care (01) | DRG 291 ==
LOC: EC 00:58 → 3SCARD 04:13
PROVIDERS: ADMIT Hospitalist; ATTEND Hospitalist
PROC: 5A09357 Assistance with Respiratory Ventilation, Less than 24 Consecutive Hours, Continuous Positive Airway Pressure (ICD-10-PCS; principal; 2024-03-29)
DX: I13.0 Hypertensive heart and chronic kidney disease with heart failure and stage 1 through stage 4 chronic kidney disease, or unspecified chronic kidney disease (principal); I50.21 Acute systolic (congestive) heart failure; J96.01 Acute respiratory failure with hypoxia; D69.6 Thrombocytopenia, unspecified; I27.20 Pulmonary hypertension, unspecified; Z68.34 Body mass index [BMI] 34.0-34.9, adult; I16.0 Hypertensive urgency; E11.22 Type 2 diabetes mellitus with diabetic chronic kidney disease; I08.0 Rheumatic disorders of both mitral and aortic valves; N18.30 Chronic kidney disease, stage 3 unspecified; Z79.01 Long term (current) use of anticoagulants; F17.210 Nicotine dependence, cigarettes, uncomplicated; E78.5 Hyperlipidemia, unspecified; E66.9 Obesity, unspecified; I37.1 Nonrheumatic pulmonary valve insufficiency; R79.1 Abnormal coagulation profile; Z79.84 Long term (current) use of oral hypoglycemic drugs; Z86.711 Personal history of pulmonary embolism; Z86.718 Personal history of other venous thrombosis and embolism; Z88.0 Allergy status to penicillin; Z91.011 Allergy to milk products; Z87.19 Personal history of other diseases of the digestive system; Z71.6 Tobacco abuse counseling
CPT/HCPCS: 36415; 71046; 78582; 80048; 80053; 82803; 83036; 83605; 83735; 83880; 84484; 85025; 85379; 85610; 85730; 93005; 93306; 94660; 96374; 96375; 96376; 99285

== ENCOUNTER → 2024-04-28 | Outpatient (CLI) | payer MEDICARE ==
[2024-04-28 13:57] LABS: ALT 24 U/L (4-49); AST 33 U/L (17-59); African American GFR (CKD) 53 (>60 ml/min/1.73 sqM); Albumin 3.2 g/dL (3.5-5.0); Albumin/Globulin Ratio 0.8; Alkaline Phosphatase 81 U/L (38-126); Anion Gap 10 mmol/L; Blood Urea Nitrogen 27 mg/dL (9-20); Calcium 8.9 mg/dL (8.4-10.2); Carbon Dioxide 26 mmol/L (22-30); Chloride 105 mmol/L (98-107); Globulin 4.2 g/dL; Glucose 135 mg/dL (74-99); Non-African American GFR(CKD) 46 (>60 ml/min/1.73 sqM); Potassium 4.4 mmol/L (3.5-5.1); Sodium 141 mmol/L (137-145); Total Bilirubin 1.1 mg/dL (0.2-1.3); Total Protein 7.4 g/dL (6.3-8.2)
[2024-04-28 14:05] LABS: Basophils % (A) 0 %; Eosinophils # (A) 0.1 k/uL (0-0.7); Eosinophils % (A) 1 %; HCT 51.4 % (39.0-53.0); Hypochromasia Marked; Lymphocytes # (A) 0.7 k/uL (1.0-4.8); Lymphocytes % (A) 21 %; MCH 29.2 pg (25.0-35.0); MCHC 29.2 g/dL (31.0-37.0); MCV 100.2 fL (80.0-100.0); Macrocytosis Slight; Mean Platelet Volume 8.9; Monocytes # (A) 0.2 k/uL (0-1.0); Monocytes % (A) 7 %; Neutrophils # (A) 2.3 k/uL (1.3-7.7); Neutrophils % (A) 69 %; RBC 5.13 m/uL (4.30-5.90); RDW 14.7 % (11.5-15.5); WBC 3.3 k/uL (3.8-10.6)
[2024-04-28 14:20] LABS: Platelet Count 179 k/uL (150-450)
[2024-04-28 14:54] LABS: Prothrombin Time >130.0 sec (10.0-12.5)
[2024-04-28 14:56] LABS: INR >10.0 (<1.2)
== END | disposition home or self-care (01) ==
LOC: LABWHC1 13:06
PROVIDERS: ATTEND Internal Medicine Cardiovascular Disease
DX: I26.99 Other pulmonary embolism without acute cor pulmonale (principal); E11.9 Type 2 diabetes mellitus without complications
CPT/HCPCS: 36415; 80053; 83036; 85025; 85610